=== PATIENT | female | born 1955 | race Caucasian/White ===

== ENCOUNTER → 2017-10-12 | Outpatient (CLI) | payer BC ==
[2017-10-12 09:46] LABS: Basophils % (A) 0 %; Eosinophils # (A) 0.1 k/uL (0-0.7); Eosinophils % (A) 1 %; HCT 45.5 % (34.0-46.0); HGB 14.6 gm/dL (11.4-16.0); Lymphocytes # (A) 2.5 k/uL (1.0-4.8); Lymphocytes % (A) 22 %; MCH 28.7 pg (25.0-35.0); MCHC 32.2 g/dL (31.0-37.0); MCV 89.3 fL (80.0-100.0); Monocytes # (A) 0.6 k/uL (0-1.0); Monocytes % (A) 6 %; Neutrophils # (A) 7.9 k/uL (1.3-7.7); Neutrophils % (A) 70 %; Platelet Count 236 k/uL (150-450); RDW 13.6 % (11.5-15.5); WBC 11.3 k/uL (3.8-10.6)
[2017-10-12 09:52] LABS: ALT 33 U/L (9-52); AST 21 U/L (14-36); Albumin 4.6 g/dL (3.5-5.0); Alkaline Phosphatase 70 U/L (38-126); Anion Gap 11 mmol/L; Blood Urea Nitrogen 17 mg/dL (7-17); Calcium 9.9 mg/dL (8.4-10.2); Carbon Dioxide 27 mmol/L (22-30); Chloride 106 mmol/L (98-107); Cholesterol 184 mg/dL (<200); Glucose 92 mg/dL (74-99); HDL Cholesterol 68 mg/dL (40-60); LDL Cholesterol,Calculated 94 mg/dL (0-99); Potassium 4.8 mmol/L (3.5-5.1); Sodium 144 mmol/L (137-145); Total Bilirubin 0.4 mg/dL (0.2-1.3); Total Protein 7.3 g/dL (6.3-8.2); Triglycerides 109 mg/dL (<150)
== END | disposition home or self-care (01) ==
LOC: LABWHC1 09:02
PROVIDERS: ATTEND Internal Medicine
DX: Z00.01 Encounter for general adult medical examination with abnormal findings (principal); E78.00 Pure hypercholesterolemia, unspecified; I10 Essential (primary) hypertension
CPT/HCPCS: 36415; 80053; 80061; 84439; 84443; 85025

== ENCOUNTER → 2018-01-21 | Outpatient (CLI) | payer BC ==
--- NOTE | 2018-01-22 10:41 | MM ---
Reason for exam: screening (asymptomatic). Last mammogram was performed 2 years and 7 months ago. History: Patient is postmenopausal and history of other cancer. Family history of breast cancer in maternal aunt and breast cancer in maternal cousin. Physical Findings: A clinical breast exam by your physician is recommended on an annual basis and results should be correlated with mammographic findings. MG Screening Mammo w CAD Bilateral CC and MLO view(s) were taken. Prior study comparison: June 18, 2015, bilateral MG screening mammo w CAD. November 28, 2012, bilateral digital screening mammo w/CAD. There are scattered fibroglandular densities. There is no discrete abnormality. ASSESSMENT: Negative, BI-RAD 1 RECOMMENDATION: Routine screening mammogram of both breasts in 1 year.
== END | disposition home or self-care (01) ==
LOC: RADMAMWWP 07:39
PROVIDERS: ATTEND Internal Medicine
DX: Z12.31 Encounter for screening mammogram for malignant neoplasm of breast (principal)
CPT/HCPCS: 77067

== ENCOUNTER 2019-06-06 07:38 | Inpatient (IN) | payer BC, MEDICARE ==
[2019-06-06] MEDS ORDERED: ACETAMINOPHEN TAB 500 MG TAB PO STA (08:06)
[2019-06-06] MEDS ORDERED: methylPREDNISolone SOD SUCCI 125 MG/2 ML VIAL IV STA (08:07)
[2019-06-06] MEDS ORDERED: IPRATROPIUM-ALBUTEROL 3 ML NEB INHALATION STA (08:07)
--- NOTE | 2019-06-06 08:10 | ED ---
General Adult HPI - General Chief complaint: Shortness of Breath Stated complaint: guillermina Time Seen by Provider: 06/06/19 07:45 Source: patient, family, RN notes reviewed Mode of arrival: ambulatory Limitations: no limitations - History of Present Illness Initial comments: Patient is a pleasant 63-year-old female presenting to the emergency Department with complaints of difficulty breathing. Onset of symptoms was 3 days ago. Patient did see her doctor and was given prescription for steroids and antibiotics without improvement of symptoms. Patient does have nonproductive cough. Patient has fatigue and myalgias. Patient does feel feverish this mor arti. Patient does have history of similar symptoms previously associated with COPD. Patient was once in the hospital for pneumonia. No leg pain or leg swelling. No chest pain. - Related Data Home Medications Medication Instructions Recorded Confirmed Aspirin EC [Ecotrin Low Dose] 81 mg PO DAILY 06/06/19 06/06/19 Azithromycin [Zithromax Z-pack] See Taper PO DAILY 06/06/19 06/06/19 Budesonide/Formoterol Fumarate 2 puff INHALATION RT-BID PRN 06/06/19 06/06/19 [Symbicort 160-4.5 Mcg Inhaler] Cetirizine HCl [Zyrtec] 10 mg PO DAILY 06/06/19 06/06/19 Ipratropium-Albuterol Nebulize 3 ml INHALATION RT-TID PRN 06/06/19 06/06/19 [Duoneb 0.5 mg-3 mg/3 ml Soln] Metoprolol Succinate [Toprol XL] 25 mg PO DAILY 06/06/19 06/06/19 Multivitamins, Thera [Multivitamin 1 tab PO DAILY 06/06/19 06/06/19 (formulary)] Rosuvastatin [Crestor] 10 mg PO DAILY 06/06/19 06/06/19 predniSONE [Deltasone] 20 mg PO DAILY 06/06/19 06/06/19 Allergies Allergy/AdvReac Type Severity Reaction Status Date / Time No Known Allergies Allergy Verified 06/06/19 09:33 Review of Systems ROS Statement: Those systems with pertinent positive or pertinent negative responses have been documented in the HPI. ROS Other: All systems not noted in ROS Statement are negative. Constitutional: Reports: fever, chills Eyes: Denies: eye pain ENT: Denies: ear pain, throat pain Respiratory: Reports: cough, dyspnea Cardiovascular: Denies: chest pain Endocrine: Reports: fatigue Gastrointestinal: Denies: abdominal pain Genitourinary: Denies: dysuria Musculoskeletal: Denies: back pain Skin: Denies: rash Neurological: Denies: weakness Past Medical History Past Medical History: Atrial Fibrillation, COPD, Hyperlipidemia, Hypertension History of Any Multi-Drug Resistant Organisms: None Reported Past Surgical History: Orthopedic Surgery Additional Past Surgical History / Comment(s): L leg Past Psychological History: No Psychological Hx Reported Smoking Status: Current every day smoker Past Alcohol Use History: None Reported Past Drug Use History: None Reported General Exam Limitations: no limitations General appearance: alert, in no apparent distress Head exam: Present: normocephalic Eye exam: Present: normal appearance ENT exam: Present: normal oropharynx Neck exam: Present: normal inspection Respiratory exam: Present: wheezes, decreased breath sounds Cardiovascular Exam: Present: tachycardia GI/Abdominal exam: Present: soft. Absent: tenderness Extremities exam: Present: normal inspection. Absent: pedal edema, calf tenderness Neurological exam: Present: alert Psychiatric exam: Present: normal affect, normal mood Skin exam: Present: normal color Course Vital Signs 06/06/19 06/06/19 06/06/19 07:41 07:59 08:15 Temperature 99 F 101.7 F H Pulse Rate 113 H 108 H Respiratory 18 24 Rate Blood Pressure 108/74 O2 Sat by Pulse 89 L 88 L 93 L Oximetry 06/06/19 06/06/19 06/06/19 08:22 08:32 09:04 Temperature 101.5 F H Pulse Rate 111 H 105 H 97 Respiratory 20 Rate Blood Pressure 100/74 O2 Sat by Pulse 94 L Oximetry EKG Findings - EKG Comments: EKG Findings:: Sinus tachycardia 111. WA 122. QRS 82. QT QT 302. QTC 410. Left axis. Low Voltage. No acute ST change. Medical Decision Making - Medical Decision Making Patient reevaluated and slightly improved. Pulse ox 93% on nasal cannula. Pat ient and family updated on results and plan. Dr. Ramirez has been paged for admission for Dr. Delgado. - Lab Data Result diagrams: 06/06/19 08:00 06/06/19 08:00 Lab Results 06/06/19 06/06/19 06/06/19 Range/Units 08:00 08:00 08:00 WBC 7.1 (3.8-10.6) k/uL RBC 4.77 (3.80-5.40) m/uL Hgb 14.4 (11.4-16.0) gm/dL Hct 42.4 (34.0-46.0) % MCV 89.0 (80.0-100.0) fL MCH 30.3 (25.0-35.0) pg MCHC 34.0 (31.0-37.0) g/dL RDW 12.6 (11.5-15.5) % Plt Count 199 (150-450) k/uL Neutrophils % 83 % Lymphocytes % 6 % Monocytes % 6 % Eosinophils % 0 % Basophils % 3 % Neutrophils # 5.9 (1.3-7.7) k/uL Lymphocytes # 0.4 L (1.0-4.8) k/uL Monocytes # 0.5 (0-1.0) k/uL Eosinophils # 0.0 (0-0.7) k/uL Basophils # 0.2 (0-0.2) k/uL PT (9.0-12.0) sec INR (<1.2) APTT (22.0-30.0) sec Sodium 138 (137-145) mmol/L Potassium 3.9 (3.5-5.1) mmol/L Chloride 105 (98-107) mmol/L Carbon Dioxide 22 (22-30) mmol/L Anion Gap 11 mmol/L BUN 14 (7-17) mg/dL Creatinine 0.68 (0.52-1.04) mg/dL Est GFR (CKD-EPI)AfAm >90 (>60 ml/min/1.73 sqM) Est GFR (CKD-EPI)NonAf >90 (>60 ml/min/1.73 sqM) Glucose 124 H (74-99) mg/dL Plasma Lactic Acid Jus 1.1 (0.7-2.0) mmol/L Calcium 8.7 (8.4-10.2) mg/dL Total Bilirubin 0.4 (0.2-1.3) mg/dL AST 50 H (14-36) U/L ALT 36 H (4-34) U/L Alkaline Phosphatase 76 (38-126) U/L Total Protein 7.5 (6.3-8.2) g/dL Albumin 4.4 (3.5-5.0) g/dL Influenza Type A RNA (Not Detectd) Influenza Type B (PCR) (Not Detectd) 06/06/19 06/06/19 Range/Units 08:00 08:00 WBC (3.8-10.6) k/uL RBC (3.80-5.40) m/uL Hgb (11.4-16.0) gm/dL Hct (34.0-46.0) % MCV (80.0-100.0) fL MCH (25.0-35.0) pg MCHC (31.0-37.0) g/dL RDW (11.5-15.5) % Plt Count (150-450) k/uL Neutrophils % % Lymphocytes % % Monocytes % % Eosinophils % % Basophils % % Neutrophils # (1.3-7.7) k/uL Lymphocytes # (1.0-4.8) k/uL Monocytes # (0-1.0) k/uL Eosinophils # (0-0.7) k/uL Basophils # (0-0.2) k/uL PT 9.5 (9.0-12.0) sec INR 0.9 (<1.2) APTT 25.3 (22.0-30.0) sec Sodium (137-145) mmol/L Potassium (3.5-5.1) mmol/L Chloride (98-107) mmol/L Carbon Dioxide (22-30) mmol/L Anion Gap mmol/L BUN (7-17) mg/dL Creatinine (0.52-1.04) mg/dL Est GFR (CKD-EPI)AfAm (>60 ml/min/1.73 sqM) Est GFR (CKD-EPI)NonAf (>60 ml/min/1.73 sqM) Glucose (74-99) mg/dL Plasma Lactic Acid Jus (0.7-2.0) mmol/L Calcium (8.4-10.2) mg/dL Total Bilirubin (0.2-1.3) mg/dL AST (14-36) U/L ALT (4-34) U/L Alkaline Phosphatase (38-126) U/L Total Protein (6.3-8.2) g/dL Albumin (3.5-5.0) g/dL Influenza Type A RNA Not Detected (Not Detectd) Influenza Type B (PCR) Detected H (Not Detectd) - Radiology Data Radiology results: image reviewed (x-ray shows no acute process) Disposition Clinical Impression: Acute exacerbation of chronic obstructive pulmonary disease, Influenza Disposition: ADMITTED IP TO THIS HOSP Is patient prescribed a controlled substance at d/c from ED?: No Referrals: Jazlyn Delgado MD [Primary Care Provider] - 1-2 days Decision Time: 09:43
[2019-06-06] MEDS: SODIUM CHLORIDE 0.9% 1,000 ML IV SCH ×3 (08:16→22:34)
[2019-06-06 08:33] LABS: ALT 36 U/L (4-34); AST 50 U/L (14-36); African American GFR (CKD) >90 (>60 ml/min/1.73 sqM); Albumin 4.4 g/dL (3.5-5.0); Alkaline Phosphatase 76 U/L (38-126); Anion Gap 11 mmol/L; Blood Urea Nitrogen 14 mg/dL (7-17); Calcium 8.7 mg/dL (8.4-10.2); Carbon Dioxide 22 mmol/L (22-30); Chloride 105 mmol/L (98-107); Glucose 124 mg/dL (74-99); INR 0.9 (<1.2); Non-African American GFR(CKD) >90 (>60 ml/min/1.73 sqM); Partial Thromboplastin Time 25.3 sec (22.0-30.0); Potassium 3.9 mmol/L (3.5-5.1); Prothrombin Time 9.5 sec (9.0-12.0); Sodium 138 mmol/L (137-145); Total Bilirubin 0.4 mg/dL (0.2-1.3); Total Protein 7.5 g/dL (6.3-8.2)
[2019-06-06 08:42] LABS: Basophils # (A) 0.2 k/uL (0-0.2); Basophils % (A) 3 %; Eosinophils % (A) 0 %; HCT 42.4 % (34.0-46.0); HGB 14.4 gm/dL (11.4-16.0); Lymphocytes # (A) 0.4 k/uL (1.0-4.8); Lymphocytes % (A) 6 %; MCH 30.3 pg (25.0-35.0); Mean Platelet Volume 7.8; Monocytes # (A) 0.5 k/uL (0-1.0); Monocytes % (A) 6 %; Neutrophils # (A) 5.9 k/uL (1.3-7.7); Neutrophils % (A) 83 %; Platelet Count 199 k/uL (150-450); RBC 4.77 m/uL (3.80-5.40); RDW 12.6 % (11.5-15.5); WBC 7.1 k/uL (3.8-10.6)
--- NOTE | 2019-06-06 09:05 | XR ---
EXAMINATION TYPE: XR chest 2V DATE OF EXAM: 06/06/2019 COMPARISON: Chest x-ray November 19, 2012. HISTORY: Fever. TECHNIQUE: Frontal and lateral views of the chest are obtained. FINDINGS: There is some chronic parenchymal change without suspicious new focal air space opacity, p leural effusion, or pneumothorax seen. The cardiac silhouette size is within normal limits. The os seous structures are intact. Overlying EKG leads seen on current study. IMPRESSION: Chronic emphysematous change without suspicious acute pulmonary process.
[2019-06-06] MEDS ORDERED: INFLUENZA VACCINE (6 MOS+) 60 MCG/0.5 ML SYRINGE IM ONE (10:32)
[2019-06-06] MEDS: IPRATROPIUM-ALBUTEROL 3 ML NEB INHALATION SCH ×3 (11:27→19:17)
[2019-06-06] MEDS ORDERED: IPRATROPIUM-ALBUTEROL 3 ML NEB INHALATION PRN (13:06)
[2019-06-06] MEDS: methylPREDNISolone SOD SUCCI 125 MG/2 ML VIAL IV SCH ×3 (13:38→23:28)
[2019-06-06] MEDS: OSELTAMIVIR 75 MG CAP PO SCH ×2 (13:38→20:39)
--- NOTE | 2019-06-06 14:21 | P.HPIM ---
History of Present Illness This is a pleasant 63 years old female with past medical history of COPD, atrial fibrillation , hyperlipidemia. Patient is not on home oxygen of steroids. She follows up with Dr. Delgado as an outpatient. Sunday she was stating feeling unwell, and by Sunday she had more difficulty breathing associated with a dry cough so decided to come to the hospital today with progressive illness. She has generalized muscle and joint pain, she had runny nose but no sore throat. Patient is febrile of 101.5, blood pressure 103/60. She is saturating 92% on 4 L. Labs showing unremarkable CBC, INR, BMP. Liver enzymes mildly elevated. If it was a type B is positive. EKG shows sinus tachycardia at 111, chest x-ray: No acute process. Chronic emphysematous changes. Patient started on Tamiflu and suddenly Medrol as well as bronchodilator. Review of Systems CONSTITUTIONAL: No fever, no malaise, no fatigue. HEENT: No recent visual problems or hearing problems. Denied any sore throat. CARDIOVASCULAR: No orthopnea, PND, no palpitations, no syncope. PULMONARY: , no hemoptysis. GASTROINTESTINAL: No diarrhea, no nausea, no vomiting, no abdominal pain. Normoactive bowel sounds. NEUROLOGICAL: No headaches, no weakness, no numbness. HEMATOLOGICAL: Denies any bleeding or petechiae. GENITOURINARY: Denies any burning micturition, frequency, or urgency. MUSCULOSKELETAL/RHEUMATOLOGICAL: Denies any joint pain, swelling, or any muscle pain. ENDOCRINE: Denies any polyuria or polydipsia. Past Medical History Past Medical History: Atrial Fibrillation, Cancer, COPD, Hyperlipidemia, Pneumonia Additional Past Medical History / Comment(s): L leg skin cancer with removal, bronchitis. History of Any Multi-Drug Resistant Organisms: None Reported Past Surgical History: Orthopedic Surgery, Tubal Ligation Additional Past Surgical History / Comment(s): L leg skin cancer removal, colonoscopy. Past Anesthesia/Blood Transfusion Reactions: No Reported Reaction Smoking Status: Current every day smoker - Past Family History Father Family Medical History: No Reported History Additional Family Medical History / Comment(s): Father lived to be 85 yrs. Mother Family Medical History: COPD Additional Family Medical History / Comment(s): Mother of COPD at the age of 84 yrs. She was a smoker. Medications and Allergies Home Medications Medication Instructions Recorded Confirmed Type Aspirin EC [Ecotrin Low Dose] 81 mg PO DAILY 06/06/19 06/06/19 History Azithromycin [Zithromax Z-pack] See Taper PO DAILY 06/06/19 06/06/19 History Budesonide/Formoterol Fumarate 2 puff INHALATION RT-BID PRN 06/06/19 06/06/19 History [Symbicort 160-4.5 Mcg Inhaler] Cetirizine HCl [Zyrtec] 10 mg PO DAILY 06/06/19 06/06/19 History Ipratropium-Albuterol Nebulize 3 ml INHALATION RT-TID PRN 06/06/19 06/06/19 History [Duoneb 0.5 mg-3 mg/3 ml Soln] Metoprolol Succinate [Toprol XL] 25 mg PO DAILY 06/06/19 06/06/19 History Multivitamins, Thera [Multivitamin 1 tab PO DAILY 06/06/19 06/06/19 History (formulary)] Rosuvastatin [Crestor] 10 mg PO DAILY 06/06/19 06/06/19 History predniSONE [Deltasone] 20 mg PO DAILY 06/06/19 06/06/19 History Allergies Allergy/AdvReac Type Severity Reaction Status Date / Time No Known Allergies Allergy Verified 06/06/19 09:33 Physical Exam Vitals: Vital Signs Temp Pulse Pulse Resp BP BP Pulse Ox 06/06/19 11:35 108 H 06/06/19 11:28 100 06/06/19 10:20 97.1 F L 84 18 103/60 92 L 06/06/19 10:19 99.8 F H 88 18 95/70 95 06/06/19 09:04 101.5 F H 97 20 100/74 94 L 06/06/19 08:32 105 H 06/06/19 08:22 111 H 06/06/19 08:15 93 L 06/06/19 07:59 101.7 F H 108 H 24 88 L 06/06/19 07:41 99 F 113 H 18 108/74 89 L Intake and Output 06/05/19 06/06/19 06/06/19 22:59 06:59 14:59 Other: Weight 84.822 kg GENERAL: The patient is alert and oriented x3, not in any acute distress. Well developed, well nourished. HEENT: Pupils are round and equally reacting to light. EOMI. No scleral icterus. No conjunctival pallor. Normocephalic, atraumatic. No pharyngeal erythema. No thyromegaly. CARDIOVASCULAR: S1 and S2 present. No murmurs, rubs, or gallops. -PULMONARY: Chest is clear to auscultation, bilateral expiratory wheezing A bilateral expiratory wheezing, nondistended, normoactive bowel sounds. No palpable organomegaly. MUSCULOSKELETAL: No joint swelling or deformity. EXTREMITIES: No cyanosis, clubbing, or pedal edema. NEUROLOGICAL: Gross neurological examination did not reveal any focal deficits. SKIN: No rashes. No petechiae Results CBC & Chem 7: 06/06/19 08:00 06/06/19 08:00 Labs: Abnormal Lab Results - Last 24 Hours (Table) 06/06/19 06/06/19 06/06/19 Range/Units 08:00 08:00 08:00 Lymphocytes # 0.4 L (1.0-4.8) k/uL Glucose 124 H (74-99) mg/dL AST 50 H (14-36) U/L ALT 36 H (4-34) U/L Influenza Type B (PCR) Detected H (Not Detectd) Thrombosis Risk Factor Assmnt - Choose All That Apply Any of the Below Risk Factors Present?: Yes Each Factor Represents 1 point: Abnormal pulmonary function (COPD), Obesity (BMI >25) Other Risk Factors: Yes Each Risk Factor Represents 2 Points: Age 61-74 years Other congenital or acquired thrombophilia - If yes, enter type in comment: No Thrombosis Risk Factor Assessment Total Risk Factor Score: 4 Thrombosis Risk Factor Assessment Level: Moderate Risk Assessment and Plan Assessment: Acute COPD exacerbation acute hypoxic respiratory failure Acute influenza infection Hyperlipidemia Atrial fibrillation Plan: This is a pleasant 63 years old female who presents with influenza and COPD. Continue with steroids, bronchodilators, oxygen. Continue with Tamiflu. Labs and medication were reviewed.. Continue same treatment. Continue with symptomatic treatment. Resume home medication. Monitor lytes and vitals. DVT and GI prophylaxis. Further recommendations of the clinical course of the patient DVT prophylaxis: Subcutaneous heparin GI Prophylaxis: Pepcid Prognosis is guarded
[2019-06-06 15:30] LABS: Appearance,Urine Clear (Clear); Bacteria,Urine Rare /hpf; Bilirubin,Urine Negative (Negative); Blood,Urine Small (Negative); Color,Urine Light Yellow; Glucose,Urine (UA) Negative (Negative); Ketones,Urine Negative (Negative); Leukocyte Esterase,Urine Negative (Negative); Mucus,Urine Rare /hpf; Nitrite,Urine Negative (Negative); PH, Urine 5.5 (5.0-8.0); Protein,Urine Negative (Negative); RBC,Urine 3 /hpf (0-5); Specific Gravity,Urine 1.008 (1.001-1.035); Squamous Epithelial Cell,Urine <1 /hpf (0-4); Urobilinogen,Urine <2.0 mg/dL (<2.0); WBC,Urine <1 /hpf (0-5)
[2019-06-06] MEDS: FAMOTIDINE 20 MG/2 ML VIAL IV SCH ×2 (16:43→20:39)
[2019-06-06] MEDS: HEPARIN SODIUM,PORCINE 5,000 UNIT/ML 1 ML VIAL SQ SCH ×2 (16:43→20:39)
[2019-06-06] MEDS: SYMBICORT 160-4.5 MCG INHALER INHALATION SCH (19:18)
[2019-06-07] MEDS ORDERED: IBUPROFEN 400 MG TAB PO PRN
[2019-06-07] MEDS ORDERED: ACETAMINOPHEN TAB 325 MG TAB PO PRN
[2019-06-07] MEDS: IPRATROPIUM-ALBUTEROL 3 ML NEB INHALATION PRN ×2 (00:08→23:56)
[2019-06-07] MEDS: methylPREDNISolone SOD SUCCI 125 MG/2 ML VIAL IV SCH ×4 (05:36→23:34)
[2019-06-07] MEDS: SYMBICORT 160-4.5 MCG INHALER INHALATION SCH ×2 (07:13→20:11)
[2019-06-07] MEDS: IPRATROPIUM-ALBUTEROL 3 ML NEB INHALATION SCH ×4 (07:13→20:11)
--- NOTE | 2019-06-07 08:43 | P.PN ---
Subjective This is a pleasant 63 years old female with past medical history of COPD, atrial fibrillation , hyperlipidemia. Patient is not on home oxygen of steroids. She follows up with Dr. Delgado as an outpatient. Sunday she was stating feeling unwell, and by Sunday she had more difficulty breathing associated with a dry cough so decided to come to the hospital today with progressive illness. She has generalized muscle and joint pain, she had runny nose but no sore throat. Patient is febrile of 101.5, blood pressure 103/60. She is saturating 92% on 4 L. Labs showing unremarkable CBC, INR, BMP. Liver enzymes mildly elevated. If it was a type B is positive. EKG shows sinus tachycardia at 111, chest x-ray: No acute process. Chronic emphysematous changes. Patient started on Tamiflu and suddenly Medrol as well as bronchodilator. 05/28/2019 although patient reports little improvement over she still tachypneic when examined her this morning with coughing. No more fever since yesterday. Labs are reviewed. She remains on Sunday Medrol 60 mg, Tamiflu and normal saline at 75 mL/h. Also she is on ibuprofen and Symbicort Review of systems This is a pleasant 63 years old female with past medical history of COPD, atrial fibrillation , hyperlipidemia. Patient is not on home oxygen of steroids. She follows up with Dr. Delgado as an outpatient. Sunday she was stating feeling unwell, and by Sunday she had more difficulty breathing associated with a dry cough so decided to come to the hospital today with progressive illness. She has generalized muscle and joint pain, she had runny nose but no sore throat. Patient is febrile of 101.5, blood pressure 103/60. She is saturating 92% on 4 L. Labs showing unremarkable CBC, INR, BMP. Liver enzymes mildly elevated. If it was a type B is positive. EKG shows sinus tachycardia at 111, chest x-ray: No acute process. Chronic emphysematous changes. Patient started on Tamiflu an d suddenly Medrol as well as bronchodilator. Active Medications Generic Name Dose Route Start Last Admin Trade Name Freq PRN Reason Stop Dose Admin Acetaminophen 650 mg 06/07/19 00:00 Tylenol Tab PO Q6HR PRN Fever and/ or Pain Albuterol/Ipratropium 3 ml 06/06/19 12:00 06/07/19 07:13 Duoneb 0.5 Mg-3 Mg/3 Ml Soln INHALATION 3 ml RT-QID KODAK Administration Albuterol/Ipratropium 3 ml 06/06/19 09:44 06/07/19 00:08 Duoneb 0.5 Mg-3 Mg/3 Ml Soln INHALATION 3 ml RT-Q4H PRN Administration Shortness Of Breath Or Wheezing Aspirin 81 mg 06/07/19 09:00 Aspirin PO DAILY [facility] Atorvastatin Calcium 20 mg 06/07/19 09:00 Lipitor PO DAILY [facility] Budesonide/Formoterol Fumarate 2 puff 06/06/19 20:00 06/07/19 07:13 Symbicort 160-4.5 Mcg Inhaler INHALATION 2 puff RT-BID KODAK Administration Famotidine 20 mg 06/06/19 14:30 06/06/19 20:39 Pepcid IV 20 mg Q12HR KODAK Administration Heparin Sodium (Porcine) 5,000 unit 06/06/19 14:30 06/06/19 20:39 Heparin SQ 5,000 unit Q12HR KODAK Administration Sodium Chloride 1,000 mls @ 75 mls/hr 06/06/19 08:15 06/06/19 22:34 Saline 0.9% IV Not Given .[id number] [facility] Ibuprofen 600 mg 06/07/19 08:42 Motrin PO BID PRN Fever and/or Moderate Pain Loratadine 10 mg 06/07/19 09:00 Claritin PO DAILY [facility] Methylprednisolone Sodium Succinate 60 mg 06/06/19 12:00 06/07/19 05:36 Solu-Medrol IV 60 mg Q6HR [facility] Administration Metoprolol Succinate 25 mg 06/07/19 09:00 Toprol Xl PO DAILY [facility] Multivitamins 1 each 06/07/19 09:00 Theragran PO DAILY [facility] Oseltamivir Phosphate 75 mg 06/06/19 09:45 06/06/19 20:39 Tamiflu PO 06/10/19 21:01 75 mg Q12HR KODAK Administration Objective - Vital Signs Vital signs: Vital Signs Temp 96.5 F L 06/07/19 04:45 Pulse 72 06/07/19 07:24 Resp 22 06/07/19 04:45 BP 114/55 06/07/19 04:45 Pulse Ox 91 L 06/07/19 04:45 Intake & Output 06/06/19 06/07/19 06/07/19 18:59 06:59 18:59 Intake Total 300 Balance 300 Weight 84.822 kg Intake: Oral 300 Other: # Voids 2 2 - Exam GENERAL: The patient is alert and oriented x3, not in any acute distress. Well developed, well nourished. HEENT: Pupils are round and equally reacting to light. EOMI. No scleral icterus. No conjunctival pallor. Normocephalic, atraumatic. No pharyngeal erythema. No thyromegaly. CARDIOVASCULAR: S1 and S2 present. No murmurs, rubs, or gallops. -PULMONARY: Chest is clear to auscultation, bilateral expiratory wheezing A bilateral expiratory wheezing, nondistended, normoactive bowel sounds. No palpable organomegaly. MUSCULOSKELETAL: No joint swelling or deformity. EXTREMITIES: No cyanosis, clubbing, or pedal edema. NEUROLOGICAL: Gross neurological examination did not reveal any focal deficits. SKIN: No rashes. No petechiae - Labs CBC & Chem 7: 06/06/19 08:00 06/06/19 08:00 Labs: Abnormal Lab Results - Last 24 Hours (Table) 06/06/19 06/06/19 Range/Units 08:00 Unknown Lymphocytes # 0.4 L (1.0-4.8) k/uL Urine Blood Small H (Negative) Urine Bacteria Rare H (None) /hpf Urine Mucus Rare H (None) /hpf Assessment and Plan Assessment: Acute COPD exacerbation acute hypoxic respiratory failure Acute influenza infection Hyperlipidemia Atrial fibrillation Plan: This is a pleasant 63 years old female who presents with influenza and COPD. Continue with steroids, bronchodilators, oxygen. Continue with Tamiflu. Labs and medication were reviewed.. Continue same treatment. Continue with symptomatic treatment. Resume home medication. Monitor lytes and vitals. DVT and GI prophylaxis. Further recommendations of the clinical course of the patient DVT prophylaxis: Subcutaneous heparin GI Prophylaxis: Pepcid Prognosis is guarded
[2019-06-07 08:47] LABS: African American GFR (CKD) >90 (>60 ml/min/1.73 sqM); Anion Gap 13 mmol/L; Blood Urea Nitrogen 13 mg/dL (7-17); Calcium 8.7 mg/dL (8.4-10.2); Carbon Dioxide 22 mmol/L (22-30); Chloride 106 mmol/L (98-107); Glucose 236 mg/dL (74-99); Non-African American GFR(CKD) >90 (>60 ml/min/1.73 sqM); Potassium 3.9 mmol/L (3.5-5.1); Sodium 141 mmol/L (137-145)
[2019-06-07] MEDS: ASPIRIN 81 MG PO SCH (09:11)
[2019-06-07] MEDS: OSELTAMIVIR 75 MG CAP PO SCH ×2 (09:11→21:54)
[2019-06-07] MEDS: LORATADINE 10 MG TAB PO SCH (09:11)
[2019-06-07] MEDS: IBUPROFEN 600 MG TAB PO PRN ×2 (09:11→21:54)
[2019-06-07] MEDS: METOPROLOL SUCCINATE (ER) 25 MG TAB.ER.24H PO SCH (09:11)
[2019-06-07] MEDS: MULTIVITAMINS, THERA 1 EACH TAB PO SCH (09:12)
[2019-06-07] MEDS: SODIUM CHLORIDE 0.9% 1,000 ML IV SCH ×3 (09:12→23:34)
[2019-06-07] MEDS: HEPARIN SODIUM,PORCINE 5,000 UNIT/ML 1 ML VIAL SQ SCH ×2 (09:12→21:53)
[2019-06-07] MEDS: ATORVASTATIN 20 MG TAB PO SCH (09:12)
[2019-06-07] MEDS: FAMOTIDINE 20 MG/2 ML VIAL IV SCH ×2 (09:12→21:53)
[2019-06-07 11:44] LABS: Glucose,Whole Blood 136 mg/dL (75-99)
[2019-06-07] MEDS: INSULIN ASPART (NovoLOG) 100 UNIT/ML VIAL SQ SCH ×3 (13:22→21:53)
--- NOTE | 2019-06-07 14:09 | CONS ---
CONSULTATION PULMONARY/CRITICAL CARE CONSULTATION: DATE OF SERVICE: 06/07/2019 REASON FOR CONSULTATION: Shortness of breath. A 63-year-old female who sees Dr. Delgado as her primary. She apparently presented to the emergency room with complaints of shortness of breath. The patient complained that she had not been feeling well for about 3 days prior to admission. She apparently did see her primary care physician who prescribed some steroids and antibiotics. Unfortunately, she did not improve. For that reason, she came in to be evaluated. She had chest congestion, shortness of breath, chest tightness, wheezing, cough. She was not really producing much or any phlegm. Maybe just a bit. The patient had fatigue and myalgias. She felt like she had a fever, but she did not actually measure her temperatures at home. She also just was feeling weak. Anyway, she did come into the emergency room to be evaluated and she was admitted with a COPD exacerbation as well as influenza. She is feeling a bit better today. Certainly not back to baseline. She did not get a flu shot in the fall. She has not seen a lung doctor. She does have a substantial tobacco history. MEDICATIONS: Reviewed. She is on aspirin, Zithromax, which was given to her by her primary, Symbicort, Zyrtec, DuoNeb, metoprolol, multivitamins, Crestor, and prednisone. ALLERGIES: Denied. MEDICAL HISTORY: Includes COPD, although she has never been evaluated by a lung doctor, hyperlipidemia, hypertension, and atrial fibrillation. SURGICAL HISTORY: Includes among other things left leg surgery. It was an orthopedic procedure. SOCIAL HISTORY: Positive for chronic and ongoing tobacco use for many, many years. She does not use alcohol or illicit drugs. FAMILY HISTORY: Noncontributory. Both mother and father were healthy. REVIEW OF SYSTEMS: CONSTITUTIONAL: Weakness, fatigue. NEUROLOGIC: Negative. HEENT: Negative. CARDIOVASCULAR: Negative. PULMONARY: Shortness of breath, chest tightness, wheezing, cough, mostly nonproductive chest congestion. GI: Negative. : Negative. RHEUMATOLOGIC: Muscle aches, joint aches. ENDOCRINOLOGIC: Negative. DERMATOLOGIC: Negative. ENDOCRINOLOGIC: Negative. Current vital signs are reviewed. She has a temperature which is 96.5, heart rate 70, respiratory rate 22, blood pressure 114/55 mean 74 and 2 L saturation 91%. Appears in no acute distress. No respiratory distress. No audible wheezing. No use of accessory muscles. HEENT: Examination is grossly unremarkable. Mucous membranes are moist. Nasal O2 noted. NECK: Supple, full range of motion. No adenopathy. Neck veins are flat. CARDIOVASCULAR: Examination reveals regular rhythm and rate. S1, S2 normal. No S3, S4, or murmur. LUNGS: Reveal coarse expiratory rhonchi and wheezes. Breath sounds are diminished. There is prolongation. No crackles. ABDOMEN: Soft, bowel sounds are heard. No masses or tenderness. EXTREMITIES: Intact. No cyanosis, clubbing, or edema. SKIN: Without rash. NEUROLOGIC: Examination is brief but nonfocal. Microbiology studies are thus far negative. Chest x-ray shows changes of COPD but no acute abnormalities. LABORATORY DATA: Reviewed. White count 7.1, hemoglobin 14.4, hematocrit 42.4, platelet count normal. PT, INR, PTT normal. Electrolytes all normal including sodium, potassium, chloride and CO2. Anion gap is normal. BUN and creatinine were 13 and 0.64. AST and ALT were 50 and 36 respectively. Urine was negative. Influenza studies were positive for influenza B by polymerase chain reaction. Current medications are reviewed. She is currently on Tylenol, aspirin, Lipitor, Symbicort, Pepcid, subcu heparin, ibuprofen, insulin, DuoNeb, loratadine, Solu-Medrol, metoprolol, multivitamins, Tamiflu, and a basic IV. ASSESSMENT: 1. Chronic obstructive pulmonary disease exacerbation, triggered by influenza B infection in a patient who was not vaccinated this fall. 2. History of ongoing tobacco use with nicotine addiction. 3. History of atrial fibrillation. 4. Hyperlipidemia. 5. Hypertension. PLAN: The patient is feeling better. Hopeful discharge in the next 24-48 hours. Medications are appropriate. Will continue to follow. I do encourage her to get a flu shot. No additional recommendations are made at this time. Prognosis is guarded. She is also counseled about the importance of smoking cessation and also mentioned to her that she should mention to her primary that she should be seen by one of the pulmonary doctors. MMODL / IJN: [id number] /
[2019-06-07 16:35] LABS: Glucose,Whole Blood 193 mg/dL (75-99)
[2019-06-07 20:34] LABS: Glucose,Whole Blood 174 mg/dL (75-99)
[2019-06-08] MEDS: methylPREDNISolone SOD SUCCI 125 MG/2 ML VIAL IV SCH ×4 (05:56→23:23)
[2019-06-08 07:04] LABS: Glucose,Whole Blood 142 mg/dL (75-99)
--- NOTE | 2019-06-08 08:18 | P.PN ---
Subjective This is a pleasant 63 years old female with past medical history of COPD, atrial fibrillation , hyperlipidemia. Patient is not on home oxygen of steroids. She follows up with Dr. Delgado as an outpatient. Sunday she was stating feeling unwell, and by Sunday she had more difficulty breathing associated with a dry cough so decided to come to the hospital today with progressive illness. She has generalized muscle and joint pain, she had runny nose but no sore throat. Patient is febrile of 101.5, blood pressure 103/60. She is saturating 92% on 4 L. Labs showing unremarkable CBC, INR, BMP. Liver enzymes mildly elevated. If it was a type B is positive. EKG shows sinus tachycardia at 111, chest x-ray: No acute process. Chronic emphysematous changes. Patient started on Tamiflu and suddenly Medrol as well as bronchodilator. 06/07/2019 although patient reports little improvement over she still tachypneic when examined her this morning with coughing. No more fever since yesterday. Labs are reviewed. She remains on Sunday Medrol 60 mg, Tamiflu and normal saline at 75 mL/h. Also she is on ibuprofen and Symbicort 06/08/2019 Patient still dyspneic especially on exertion, she does have some rib cage pain from coughing. She does not think she is ready to be discharged today. Patient is afebrile and blood pressure stable. On exam she still have limited air entry. Glucose is controlled. Continue with steroids and Tamiflu. Objective - Vital Signs Vital signs: Vital Signs Temp 96.2 F L 06/08/19 04:50 Pulse 89 06/08/19 04:50 Resp 20 06/08/19 04:50 BP 119/68 06/08/19 04:50 Pulse Ox 92 L 06/08/19 04:50 Intake & Output 06/07/19 06/08/19 06/08/19 18:59 06:59 18:59 Intake Total 940 500 Balance 940 500 Intake: Oral 940 500 Other: # Voids 3 1 - Exam GENERAL: The patient is alert and oriented x3, not in any acute distress. Well developed, well nourished. HEENT: Pupils are round and equally reacting to light. EOMI. No scleral icterus. No conjunctival pallor. Normocephalic, atraumatic. No pharyngeal erythema. No thyromegaly. CARDIOVASCULAR: S1 and S2 present. No murmurs, rubs, or gallops. -PULMONARY: Chest is clear to auscultation, bilateral expiratory wheezing A bilateral expiratory wheezing, nondistended, normoactive bowel sounds. No palpable organomegaly. MUSCULOSKELETAL: No joint swelling or deformity. EXTREMITIES: No cyanosis, clubbing, or pedal edema. NEUROLOGICAL: Gross neurological examination did not reveal any focal deficits. SKIN: No rashes. No petechiae - Labs CBC & Chem 7: 06/06/19 08:00 06/07/19 08:15 Labs: Abnormal Lab Results - Last 24 Hours (Table) 06/07/19 06/07/19 06/07/19 Range/Units 08:15 11:41 16:29 Glucose 236 H (74-99) mg/dL POC Glucose (mg/dL) 136 H 193 H (75-99) mg/dL 06/07/19 06/08/19 Range/Units 20:08 07:01 Glucose (74-99) mg/dL POC Glucose (mg/dL) 174 H 142 H (75-99) mg/dL Microbiology - Last 24 Hours (Table) 06/06/19 08:00 Blood Culture - Preliminary Blood No Growth after 24 hours Assessment and Plan Assessment: Acute COPD exacerbation acute hypoxic respiratory failure Acute influenza infection Hyperlipidemia Atrial fibrillation Plan: This is a pleasant 63 years old female who presents with influenza and COPD. Continue with steroids, bronchodilators, oxygen. Continue with Tamiflu. Labs and medication were reviewed.. Continue same treatment. Continue with symptom atic treatment. Resume home medication. Monitor lytes and vitals. DVT and GI prophylaxis. Further recommendations of the clinical course of the patient DVT prophylaxis: Subcutaneous heparin GI Prophylaxis: Pepcid Prognosis is guarded
[2019-06-08] MEDS: IPRATROPIUM-ALBUTEROL 3 ML NEB INHALATION SCH ×4 (08:24→19:37)
[2019-06-08] MEDS: SYMBICORT 160-4.5 MCG INHALER INHALATION SCH ×2 (08:24→19:37)
[2019-06-08] MEDS: FAMOTIDINE 20 MG/2 ML VIAL IV SCH ×2 (08:59→20:56)
[2019-06-08] MEDS: ASPIRIN 81 MG PO SCH (08:59)
[2019-06-08] MEDS: HEPARIN SODIUM,PORCINE 5,000 UNIT/ML 1 ML VIAL SQ SCH ×2 (08:59→20:56)
[2019-06-08] MEDS: OSELTAMIVIR 75 MG CAP PO SCH ×2 (08:59→20:56)
[2019-06-08] MEDS: METOPROLOL SUCCINATE (ER) 25 MG TAB.ER.24H PO SCH (08:59)
[2019-06-08] MEDS: MULTIVITAMINS, THERA 1 EACH TAB PO SCH (08:59)
[2019-06-08] MEDS: LORATADINE 10 MG TAB PO SCH (08:59)
[2019-06-08] MEDS: ATORVASTATIN 20 MG TAB PO SCH (09:00)
[2019-06-08] MEDS: INSULIN ASPART (NovoLOG) 100 UNIT/ML VIAL SQ SCH ×4 (09:00→20:55)
[2019-06-08] MEDS: IBUPROFEN 600 MG TAB PO PRN ×2 (09:08→17:54)
[2019-06-08 11:25] LABS: Glucose,Whole Blood 164 mg/dL (75-99)
--- NOTE | 2019-06-08 12:47 | P.PN ---
Subjective Progress Note Date: 06/08/19 Principal diagnosis: Acute exacerbation of chronic obstructive pulmonary disease, complicated by influenza B The patient is seen today in 06/08/2019 in follow-up on the regular medical floor. She was admitted for an acute exacerbation of chronic obstructive pulmonary disease, complicated by influenza B. She does have chronic and ongoing tobacco dependence. She was has a history of atrial fibrillation, hyperlipidemia, hypertension. She is seen today in follow-up. She is sitting up at the bedside. Awake and alert in no acute distress. She is improved today compared to yesterday but not quite back to her baseline. Still with some dyspnea on exertion. Still somewhat bronchospastic and wheezy. She has been maintained on DuoNeb inhalations, Symbicort, IV Solu-Medrol, Tamiflu. Objective - Vital Signs Vital signs: Vital Signs Temp 96.2 F L 06/08/19 04:50 Pulse 84 06/08/19 11:50 Resp 20 06/08/19 04:50 BP 119/68 06/08/19 04:50 Pulse Ox 93 L 06/08/19 08:24 Intake & Output 06/07/19 06/08/19 06/08/19 18:59 06:59 18:59 Intake Total 940 500 Balance 940 500 Intake: Oral 940 500 Other: # Voids 3 1 - Exam GENERAL EXAM: Alert, active, pleasant 63-year-old female patient, on 2 L nasal cannula, comfortable in no apparent distress. HEAD: Normocephalic. EYES: Normal reaction of pupils, equal size. NOSE: Clear with pink turbinates. THROAT: No erythema or exudates. NECK: No masses, no JVD. CHEST: No chest wall deformity. LUNGS: Equal air entry with bilateral end expiratory wheeze, diminished. CVS: S1 and S2 normal with no audible murmur, regular rhythm. ABDOMEN: No hepatosplenomegaly, normal bowel sounds, no guarding or rigidity. SPINE: No scoliosis or deformity SKIN: No rashes CENTRAL NERVOUS SYSTEM: No focal deficits, tone is normal in all 4 extremities. EXTREMITIES: There is no peripheral edema. No clubbing, no cyanosis. Peripheral pulses are intact. - Labs CBC & Chem 7: 06/06/19 08:00 06/07/19 08:15 Labs: Abnormal Lab Results - Last 24 Hours (Table) 0106/07/19 06/08/19 Range/Units 16:29 20:08 07:01 POC Glucose (mg/dL) 193 H 174 H 142 H (75-99) mg/dL 06/08/19 Range/Units 11:22 POC Glucose (mg/dL) 164 H (75-99) mg/dL Microbiology - Last 24 Hours (Table) 06/06/19 08:00 Blood Culture - Preliminary Blood No Growth after 48 hours Assessment and Plan Assessment: 1 Acute exacerbation chronic obstructive pulmonary disease, complicated by influenza B 2 Chronic and ongoing tobacco dependence 3 History of atrial fibrillation 4 Hyperlipidemia 5 Hypertension Plan: The patient was seen and evaluated by Dr. Cook. She is improved but not quite back to her baseline. We'll continue the current treatment plan. Probable discharge in the a.m. She is again educated regarding the importance of complete smoking cessation. We'll continue to follow I, the cosigning physician, performed a history & physical examination of the patient. Lungs sounds with bilateral end expiratory wheeze, diminished. Maintaining good O2 saturations in the 90s on 2 L/m per nasal cannula. I discussed the assessment and plan of care with my nurse practitioner, Mona Tomas. I attest to the above note as dictated by her.
[2019-06-08 16:44] LABS: Glucose,Whole Blood 149 mg/dL (75-99)
[2019-06-08] MEDS: SODIUM CHLORIDE 0.9% 1,000 ML IV SCH (17:49)
[2019-06-08 18:48] LABS: African American GFR (CKD) >90 (>60 ml/min/1.73 sqM); Anion Gap 8 mmol/L; Blood Urea Nitrogen 16 mg/dL (7-17); Calcium 8.7 mg/dL (8.4-10.2); Carbon Dioxide 26 mmol/L (22-30); Chloride 105 mmol/L (98-107); Glucose 155 mg/dL (74-99); Non-African American GFR(CKD) >90 (>60 ml/min/1.73 sqM); Potassium 4.6 mmol/L (3.5-5.1); Sodium 139 mmol/L (137-145)
[2019-06-08 20:39] LABS: Glucose,Whole Blood 183 mg/dL (75-99)
[2019-06-09] MEDS: methylPREDNISolone SOD SUCCI 125 MG/2 ML VIAL IV SCH ×2 (05:54→12:23)
[2019-06-09 07:13] LABS: Glucose,Whole Blood 144 mg/dL (75-99)
[2019-06-09] MEDS: FAMOTIDINE 20 MG/2 ML VIAL IV SCH (07:40)
[2019-06-09] MEDS: OSELTAMIVIR 75 MG CAP PO SCH (07:40)
[2019-06-09] MEDS: METOPROLOL SUCCINATE (ER) 25 MG TAB.ER.24H PO SCH (07:41)
[2019-06-09] MEDS: MULTIVITAMINS, THERA 1 EACH TAB PO SCH (07:41)
[2019-06-09] MEDS: ATORVASTATIN 20 MG TAB PO SCH (07:41)
[2019-06-09] MEDS: HEPARIN SODIUM,PORCINE 5,000 UNIT/ML 1 ML VIAL SQ SCH (07:41)
[2019-06-09] MEDS: INSULIN ASPART (NovoLOG) 100 UNIT/ML VIAL SQ SCH ×2 (07:41→12:23)
[2019-06-09] MEDS: ASPIRIN 81 MG PO SCH (07:41)
[2019-06-09] MEDS: LORATADINE 10 MG TAB PO SCH (07:41)
[2019-06-09] MEDS: SODIUM CHLORIDE 0.9% 1,000 ML IV SCH (07:42)
[2019-06-09] MEDS: SYMBICORT 160-4.5 MCG INHALER INHALATION SCH (09:23)
[2019-06-09] MEDS: IPRATROPIUM-ALBUTEROL 3 ML NEB INHALATION SCH ×3 (09:23→16:23)
[2019-06-09 11:24] LABS: Glucose,Whole Blood 157 mg/dL (75-99)
[2019-06-09 14:29] VITALS: BP 120/72; RESP 18; TEMP 98.7
--- NOTE | 2019-06-09 15:12 | P.PN ---
Subjective Progress Note Date: 06/09/19 On today's evaluation of 06/09/2019 the patient is doing well. No specific complaints. She is gradually improving. She is ambulating. No fever. No chills. No chest pain. No nausea vomiting or diarrhea. No other complaints otherwise for now. She has Symbicort at home and she also has a nebulizer. She is desaturating with activity and it's likely that the patient may need home O2 at a time of discharge. No altered mentation. No chest pain. Objective - Vital Signs Vital signs: Vital Signs Temp 98.7 F 06/09/19 12:45 Pulse 92 06/09/19 13:35 Resp 18 06/09/19 12:45 BP 120/72 06/09/19 12:45 Pulse Ox 92 L 06/09/19 12:45 Intake & Output 06/08/19 06/09/19 06/09/19 18:59 06:59 18:59 Intake Total 540 540 Balance 540 540 Intake: Oral 540 540 Other: Voiding Method Toilet Toilet # Voids 3 2 3 - Exam GENERAL EXAM: Alert, active, pleasant 63-year-old female patient, on 2 L nasal cannula, comfortable in no apparent distress. HEAD: Normocephalic. EYES: Normal reaction of pupils, equal size. NOSE: Clear with pink turbinates. THROAT: No erythema or exudates. NECK: No masses, no JVD. CHEST: No chest wall deformity. LUNGS: Equal air entry with bilateral end expiratory wheeze, diminished. CVS: S1 and S2 normal with no audible murmur, regular rhythm. ABDOMEN: No hepatosplenomegaly, normal bowel sounds, no guarding or rigidity. SPINE: No scoliosis or deformity SKIN: No rashes CENTRAL NERVOUS SYSTEM: No focal deficits, tone is normal in all 4 extremities. EXTREMITIES: There is no peripheral edema. No clubbing, no cyanosis. Periphe ral pulses are intact. - Labs CBC & Chem 7: 06/06/19 08:00 06/08/19 18:12 Labs: Abnormal Lab Results - Last 24 Hours (Table) 06/08/19 06/08/19 06/08/19 Range/Units 16:42 18:12 20:35 Glucose 155 H (74-99) mg/dL POC Glucose (mg/dL) 149 H 183 H (75-99) mg/dL 06/09/19 06/09/19 Range/Units 07:09 11:23 Glucose (74-99) mg/dL POC Glucose (mg/dL) 144 H 157 H (75-99) mg/dL Microbiology - Last 24 Hours (Table) 06/06/19 08:00 Blood Culture - Preliminary Blood No Growth after 72 hours Assessment and Plan Plan: 1 Acute exacerbation chronic obstructive pulmonary disease, complicated by influenza B 2 Chronic and ongoing tobacco dependence 3 History of atrial fibrillation 4 Hyperlipidemia 5 Hypertension Clinically the patient is improving. The patient is recovering from an acute COPD exacerbation. She'll be completing a course of Tamiflu along with a prednisone burst taper. Assess home oxygen at time of discharge and it's likely that the patient may need brief oxygen therapy at home as the patient is demonstrating some exertional desaturation. Otherwise she is doing well and I think she should be able to go home today to be followed up with pulmonary and her primary care physician on outpatient basis.
[2019-06-09 16:11] VITALS: PULSE 81
--- NOTE | 2019-06-12 10:17 | P.DS ---
Providers Date of admission: 06/06/19 09:44 Attending physician: Jonathan Ramirez Consults: 06/06/19 14:11 Consult Physician Urgent Consulting Provider: David Cook Consult Reason/Comments: COPD, influenza Do you want consulting provider notified?: Yes Primary care physician: Jazlyn Delgado Hospital Course: Diagnoses: Acute COPD exacerbation acute hypoxic respiratory failure Acute influenza infection Hyperlipidemia Atrial fibrillation Hospital course: This is a pleasant 63 years old female with past medical history of COPD, atrial fibrillation , hyperlipidemia. Patient is not on home oxygen of steroids. She follows up with Dr. Delgado as an outpatient. Sunday she was stating feeling unwell, and by Sunday she had more difficulty breathing associated with a dry cough so decided to come to the hospital today with progressive illness. She has generalized muscle and joint pain, she had runny nose but no sore throat. Patient was febrile of 101.5, On admission patient was found to be influenza positive and started on Tamiflu, she was found to be an acute COPD exacerbation. Chest x-ray: No acute consolidation but chronic emphysematous changes. Patient has been evaluated by pulmonary service. Patient was treated with bronchodilators as well as steroids. Patient gradually showed interval improvement, and her symptoms were resolving with less dyspnea, patient came back close to her baseline. On the day of discharge patient denies chest pain, no abdominal pain or nausea vomiting. No fever Patient feels she can be discharged home Patient was cleared for discharge by pulmonary service Problems and management plan were discussed with the patient and he verbalized understanding and acceptance Patient was found stable and can be discharged home however he needs follow-up as an outpatient. Patient was instructed to follow up with PCP within one week and patient agrees. pt agrees with appointment made for her Gen: patient is a AAOx3, no distress CVS: S1-S2, RRR, no murmur Lungs: B/L CTA, no wheezing Abdomen: soft, no distention, no tenderness, positive bowel sounds Extremity: no leg edema or induration Time spent more than 35 minutes Plan - Discharge Summary Discharge Rx Participant: No New Discharge Prescriptions: New Ibuprofen [Motrin] 600 mg PO BID PRN 2 Days #4 tab PRN Reason: Fever And/Or Moderate Pain Famotidine [Pepcid] 20 mg PO BID #60 tablet predniSONE 10 mg PO DIRECTED #30 tab Oseltamivir [Tamiflu] 75 mg PO Q12HR 2 Days #3 cap Acetaminophen Tab [Tylenol] 650 mg PO Q6HR PRN tab PRN Reason: Fever And/ Or Pain guaiFENesin-DM 100-10MG/5ML [Robitussin DM] 10 ml PO Q6HR 3 Days #120 ml Continue Budesonide/Formoterol Fumarate [Symbicort 160-4.5 Mcg Inhaler] 2 puff INHALATION RT-BID PRN PRN Reason: Shortness Of Breath Multivitamins, Thera [Multivitamin (formulary)] 1 tab PO DAILY Metoprolol Succinate [Toprol XL] 25 mg PO DAILY Cetirizine HCl [Zyrtec] 10 mg PO DAILY Aspirin EC [Ecotrin Low Dose] 81 mg PO DAILY Rosuvastatin [Crestor] 10 mg PO DAILY predniSONE [Deltasone] 20 mg PO DAILY Azithromycin [Zithromax Z-pack] See Taper PO DAILY Ipratropium-Albuterol Nebulize [Duoneb 0.5 mg-3 mg/3 ml Soln] 3 ml INHALATION RT-TID PRN #1 neb PRN Reason: Shortness Of Breath Discharge Medication List Aspirin EC [Ecotrin Low Dose] 81 mg PO DAILY 06/06/19 [History] Azithromycin [Zithromax Z-pack] See Taper PO DAILY 06/06/19 [History] Budesonide/Formoterol Fumarate [Symbicort 160-4.5 Mcg Inhaler] 2 puff INHALATION RT-BID PRN 06/06/19 [History] Cetirizine HCl [Zyrtec] 10 mg PO DAILY 06/06/19 [History] Metoprolol Succinate [Toprol XL] 25 mg PO DAILY 06/06/19 [History] Multivitamins, Thera [Multivitamin (formulary)] 1 tab PO DAILY 06/06/19 [History] Rosuvastatin [Crestor] 10 mg PO DAILY 06/06/19 [History] predniSONE [Deltasone] 20 mg PO DAILY 06/06/19 [History] Acetaminophen Tab [Tylenol] 650 mg PO Q6HR PRN tab 06/09/19 [Rx] Famotidine [Pepcid] 20 mg PO BID #60 tablet 06/09/19 [Rx] Ibuprofen [Motrin] 600 mg PO BID PRN 2 Days #4 tab 06/09/19 [Rx] Ipratropium-Albuterol Nebulize [Duoneb 0.5 mg-3 mg/3 ml Soln] 3 ml INHALATION RT-TID PRN #1 neb 06/09/19 [Rx] Oseltamivir [Tamiflu] 75 mg PO Q12HR 2 Days #3 cap 06/09/19 [Rx] guaiFENesin-DM 100-10MG/5ML [Robitussin DM] 10 ml PO Q6HR 3 Days #120 ml 06/09/19 [Rx] predniSONE 10 mg PO DIRECTED #30 tab 06/09/19 [Rx] Follow up Appointment(s)/Referral(s): [facility] [NON-STAFF] - (Supplies Home oxygen) David Cook DO [Doctor of Osteopathic Medicine] - 06/16/19 8:15 am Jazlyn Delgado MD [Primary Care Provider] - 06/11/19 2:15 pm Patient Instructions/Handouts: Influenza (DC) Discharge Disposition: HOME SELF-CARE
== END 2019-06-09 17:18 | disposition home or self-care (01) | DRG 190 ==
LOC: EC 07:38 → 6NMEDSUR 09:44
PROVIDERS: ADMIT Hospitalist; ATTEND Hospitalist
DX: J44.1 Chronic obstructive pulmonary disease with (acute) exacerbation (principal); J96.01 Acute respiratory failure with hypoxia; J10.1 Influenza due to other identified influenza virus with other respiratory manifestations; F17.210 Nicotine dependence, cigarettes, uncomplicated; E78.5 Hyperlipidemia, unspecified; I10 Essential (primary) hypertension; I48.91 Unspecified atrial fibrillation; Z79.51 Long term (current) use of inhaled steroids; Z79.82 Long term (current) use of aspirin; Z79.899 Other long term (current) drug therapy; Z82.5 Family history of asthma and other chronic lower respiratory diseases; Z85.828 Personal history of other malignant neoplasm of skin; Z87.01 Personal history of pneumonia (recurrent); Z98.51 Tubal ligation status
CPT/HCPCS: 36415; 71046; 80048; 80053; 81001; 83605; 85025; 85610; 85730; 87040; 87502; 93005; 94640; 94760; 96374; 99285

== ENCOUNTER 2022-08-05 16:13 | Emergency (ER) | payer MEDICARE ==
[2022-08-05 16:19] VITALS: TEMP 98.6
--- NOTE | 2022-08-05 16:23 | ED ---
General Adult HPI - General Chief complaint: Shortness of Breath Stated complaint: JESÚS Time Seen by Provider: 08/05/22 16:20 Source: patient Mode of arrival: ambulatory Limitations: no limitations - History of Present Illness Initial comments: Patient presents to the ED with her son for evaluation. Patient states that she was exposed to "the red tide" while she was in [place] about a week ago, and she says that she has had waxing and waning dyspnea since then. Patient states that her dyspnea has become worse since about 4 AM this morning. Patient states that she has also had a slight cough, as well as a headache. Patient states that she has COPD, and she states that she has been using her nebulizer machine with some relief. Patient denies fever or chills, sudden onset of headache, trauma or injury, LOC, neck pain or stiffness, focal numbness/weakness/neuro deficit, sore throat, chest pain, hemoptysis, palpitations, dizziness, nausea/vomi ting/diaphoresis, abdominal pain, diarrhea, blood or melanotic stool, dysuria or urinary symptoms, decreased urine output, leg or calf swelling or pain, or any other symptoms or complaints. - Related Data Home Medications Medication Instructions Recorded Confirmed Aspirin EC [Ecotrin Low Dose] 81 mg PO DAILY 06/06/19 06/06/19 Azithromycin [Zithromax Z-pack (6 See Taper PO DAILY 06/06/19 06/06/19 tabs)] Budesonide/Formoterol Fumarate 2 puff INHALATION RT-BID PRN 06/06/19 06/06/19 [Symbicort 160-4.5 Mcg Inhaler] Cetirizine HCl [Zyrtec] 10 mg PO DAILY 06/06/19 06/06/19 Metoprolol Succinate [Toprol XL] 25 mg PO DAILY 06/06/19 06/06/19 Multivitamins, Thera [Multivitamin 1 tab PO DAILY 06/06/19 06/06/19 (formulary)] Rosuvastatin [Crestor] 10 mg PO DAILY 06/06/19 06/06/19 predniSONE [Deltasone] 20 mg PO DAILY 06/06/19 06/06/19 Previous Rx's Medication Instructions Recorded Acetaminophen Tab [Tylenol] 650 mg PO Q6HR PRN tab 06/09/19 Famotidine [Pepcid] 20 mg PO BID #60 tablet 06/09/19 Ibuprofen [Motrin] 600 mg PO BID PRN 2 Days #4 tab 06/09/19 Ipratropium-Albuterol Nebulize 3 ml INHALATION RT-TID PRN #1 neb 06/09/19 [Duoneb 0.5 mg-3 mg/3 ml Soln] Oseltamivir [Tamiflu] 75 mg PO Q12HR 2 Days #3 cap 06/09/19 guaiFENesin-DM 100-10MG/5ML 10 ml PO Q6HR 3 Days #120 ml 06/09/19 [Robitussin DM] predniSONE 10 mg PO DIRECTED #30 tab 06/09/19 predniSONE [Deltasone] 20 mg PO BID #10 tab 08/05/22 Allergies Allergy/AdvReac Type Severity Reaction Status Date / Time No Known Allergies Allergy Verified 08/05/22 16:18 Review of Systems ROS Statement: Those systems with pertinent positive or pertinent negative responses have been documented in the HPI. ROS Other: All systems not noted in ROS Statement are negative. Past Medical History Past Medical History: Atrial Fibrillation, Cancer, COPD, Diabetes Mellitus, Hyperlipidemia, Pneumonia Additional Past Medical History / Comment(s): L leg skin cancer with removal, bronchitis. History of Any Multi-Drug Resistant Organisms: None Reported Past Surgical History: Orthopedic Surgery, Tubal Ligation Additional Past Surgical History / Comment(s): L leg skin cancer removal, colonoscopy. Past Anesthesia/Blood Transfusion Reactions: No Reported Reaction Past Psychological History: No Psychological Hx Reported Smoking Status: Never smoker Past Alcohol Use History: Occasional Past Drug Use History: None Reported - Past Family History Father Family Medical History: No Reported History Additional Family Medical History / Comment(s): Father lived to be 85 yrs. Mother Family Medical History: COPD Additional Family Medical History / Comment(s): Mother of COPD at the age of 84 yrs. She was a smoker. General Exam Limitations: no limitations General appearance: alert, in no apparent distress Head exam: Present: atraumatic, normocephalic Eye exam: Present: normal appearance, PERRL, EOMI ENT exam: Present: normal oropharynx, mucous membranes moist Neck exam: Present: other (Trachea is in midline). Absent: tenderness, meningismus Respiratory exam: Present: other (Scattered expiratory wheezes bilaterally). Absent: respiratory distress, rales, rhonchi, stridor Cardiovascular Exam: Present: normal rhythm, tachycardia, normal heart sounds, other (Normal radial pulses bilaterally) GI/Abdominal exam: Present: soft. Absent: distended, tenderness, guarding Extremities exam: Present: other (Negative Homans sign bilaterally). Absent: tenderness, pedal edema, calf tenderness Neurological exam: Present: alert, oriented X3, CN II-XII intact. Absent: motor sensory deficit Psychiatric exam: Present: normal affect, normal mood Skin exam: Present: warm, dry, intact, normal color Course Vital Signs 08/05/22 08/05/22 08/05/22 16:15 17:20 17:26 Temperature 98.6 F Pulse Rate 108 H 98 Respiratory 24 18 Rate Blood Pressure 71/50 O2 Sat by Pulse 87 L Oximetry 08/05/22 08/05/22 08/05/22 17:29 18:06 18:23 Temperature Pulse Rate 100 101 H Respiratory 18 Rate Blood Pressure 115/75 O2 Sat by Pulse 96 93 L Oximetry - Reevaluation(s) Reevaluation #1: 08/05/22 18:26 Patient states that her dyspnea has improved with the DuoNeb treatment that she was given in the ED. Patient denies development of any new symptoms while in the ED. Patient currently has an O2 sat 92% on room air. Patient and son are aware of the patient's test results, and patient feels comfortable going home with her son at this time. She was counseled about COPD exacerbations and COVID-19. She was clearly explained return and follow-up instructions, and she was instructed to follow up closely with her primary care provider. She was counseled about isolation precautions as well. She feels comfortable with this plan. EKG Findings - EKG Comments: EKG Findings:: ED physician interpretation: Sinus tachycardia, ventricular rate of 101 bpm, no ectopy, normal [place] and QRS intervals, normal QT interval, borderline left axis deviation, no ST or T-wave abnormality Medical Decision Making - Medical Decision Making Was pt. sent in by a medical professional or institution (, PA, ROAD DESIGN ENGINEER, urgent care, hospital, or long term...) When possible be specific @ -No Did you speak to anyone other than the patient for history (EMS, parent, family, police, friend...)? What history was obtained from this source @ -No Did you review nursing and triage notes (agree or disagree)? Why? @ -I reviewed and agree with nursing and triage notes Were old charts reviewed (outside hosp., previous admission, EMS record, old EKG, old radiological studies, urgent care reports/EKG's, long term records)? Report findings @ -No old charts were reviewed Differential Diagnosis (chest pain, altered mental status, abdominal pain women, abdominal pain men, vaginal bleeding, weakness, fever, dyspnea, syncope, headache, dizziness, GI bleed, back pain, seizure, CVA, palpatations, mental health, musculoskeletal)? @ -Differential Dyspnea: Coronary syndrome, arrhythmia, asthma, COPD, pulmonary embolism, pneumonia, pneumothorax, pulmonary effusion, URI, viral illness, influenza, Covid, anemia, neuromuscular, this is not meant to be an all-inclusive list. EKG interpreted by me (3pts min.). @ -As above X-rays interpreted by me (1pt min.). @ -Chest x-ray was reviewed myself, and I agree with the radiologist's interpretation as above. CT interpreted by me (1pt min.). @ -None done U/S interpreted by me (1pt. min.). @ -None done What testing was considered but not performed or refused? (CT, X-rays, U/S, labs)? Why? @ -None What meds were considered but not given or refused? Why? @ -None Did you discuss the management of the patient with other professionals (professionals i.e. , PA, ROAD DESIGN ENGINEER, lab, RT, psych nurse, director social, commercial drafter, teacher, administrative officer, case finisher)? Give summary @ -No Was smoking cessation discussed for >3mins.? @ -No Was critical care preformed (if so, how long)? @ -No Were there social determinants of health that impacted care today? How? (Homelessness, low income, unemployed, alcoholism, drug addiction, transportation, low edu. Level, literacy, decrease access to med. care, nursing home, rehab)? @ -No Was there de-escalation of care discussed even if they declined (Discuss DNR or withdrawal of care, Hospice)? DNR status @ -No What co-morbidities impacted this encounter? (DM, HTN, Smoking, COPD, CAD, Cancer, CVA, ARF, Chemo, Hep., AIDS, mental health diagnosis, sleep apnea, morb id obesity)? @ -None Was patient admitted / discharged? Hospital course, mention meds given and route, prescriptions, significant lab abnormalities, going to OR and other pertinent info. @ -Patient was treated with a DuoNeb treatment and oral prednisone in the ED. Patient reports improvement in her dyspnea. Patient's Covid test is positive. Patient's cardiac labs and d-dimer are within normal limits. The rest of the patient's labs are fairly unremarkable. Patient's chest x-ray is unremarkable as well. I suspect that the patient's symptoms are due to COPD exacerbation and COVID-19 infection. Will discharge patient home with her son at this time with a prescription for a course of prednisone. Patient feels comfortable with this plan. Undiagnosed new problem with uncertain prognosis? @ -No Drug Therapy requiring intensive monitoring for toxicity (Heparin, Nitro, Insul in, Cardizem)? @ -No Were any procedures done? @ -No Diagnosis/symptom? @ -COPD exacerbation Acute, or Chronic, or Acute on Chronic? @ -Acute Uncomplicated (without systemic symptoms) or Complicated (systemic symptoms)? @ -Uncomplicated Side effects of treatment? @ -No Exacerbation, Progression, or Severe Exacerbation? @ -Exacerbation Poses a threat to life or bodily function? How? (Chest pain, [place], [place], pneumonia, PE, COPD, DKA, ARF, appy, cholecystitis, CVA, Diverticulitis, Homicidal, Suicidal, threat to staff... and all critical care pts) @ -No Diagnosis/symptom? @ -COVID-19 Acute, or Chronic, or Acute on Chronic? @ -Acute Uncomplicated (without systemic symptoms) or Complicated (systemic symptoms)? @ -Uncomplicated Side effects of treatment? @ -none Exacerbation, Progression, or Severe Exacerbation] @ -no Poses a threat to life or bodily function? @ -no - Lab Data Result diagrams: 08/05/22 16:53 08/05/22 16:53 Lab Results 08/05/22 08/05/22 08/05/22 Range/Units 16:53 16:53 16:53 WBC 11.1 H (3.8-10.6) k/uL RBC 4.72 (3.80-5.40) m/uL Hgb 14.2 (11.4-16.0) gm/dL Hct 42.8 (34.0-46.0) % MCV 90.8 (80.0-100.0) fL MCH 30.0 (25.0-35.0) pg MCHC 33.1 (31.0-37.0) g/dL RDW 12.6 (11.5-15.5) % Plt Count 268 (150-450) k/uL MPV 7.8 Neutrophils % 87 % Lymphocytes % 4 % Monocytes % 6 % Eosinophils % 1 % Basophils % 0 % Neutrophils # 9.7 H (1.3-7.7) k/uL Lymphocytes # 0.5 L (1.0-4.8) k/uL Monocytes # 0.7 (0-1.0) k/uL Eosinophils # 0.1 (0-0.7) k/uL Basophils # 0.0 (0-0.2) k/uL PT 10.0 (9.0-12.0) sec INR 0.9 (<1.2) APTT 24.4 (22.0-30.0) sec D-Dimer 0.52 (<0.60) mg/L FEU Sodium 134 L (137-145) mmol/L Potassium 4.8 (3.5-5.1) mmol/L Chloride 98 (98-107) mmol/L Carbon Dioxide 25 (22-30) mmol/L Anion Gap 11 mmol/L BUN 19 H (7-17) mg/dL Creatinine 0.75 (0.52-1.04) mg/dL Est GFR (CKD-EPI)AfAm >90 (>60 ml/min/1.73 sqM) Est GFR (CKD-EPI)NonAf 82 (>60 ml/min/1.73 sqM) Glucose 121 H (74-99) mg/dL Calcium 9.2 (8.4-10.2) mg/dL Total Bilirubin 0.7 (0.2-1.3) mg/dL AST 73 H (14-36) U/L ALT 67 H (4-34) U/L Alkaline Phosphatase 72 (38-126) U/L Troponin I (0.000-0.034) ng/mL NT-Pro-B Natriuret Pep pg/mL Total Protein 8.4 H (6.3-8.2) g/dL Albumin 4.9 (3.5-5.0) g/dL Influenza Type A (PCR) (Not Detectd) Influenza Type B (PCR) (Not Detectd) RSV (PCR) (Not Detectd) SARS-CoV-2 (PCR) (Not Detectd) 08/05/22 08/05/22 08/05/22 Range/Units 16:53 16:53 16:55 WBC (3.8-10.6) k/uL RBC (3.80-5.40) m/uL Hgb (11.4-16.0) gm/dL Hct (34.0-46.0) % MCV (80.0-100.0) fL MCH (25.0-35.0) pg MCHC (31.0-37.0) g/dL RDW (11.5-15.5) % Plt Count (150-450) k/uL MPV Neutrophils % % Lymphocytes % % Monocytes % % Eosinophils % % Basophils % % Neutrophils # (1.3-7.7) k/uL Lymphocytes # (1.0-4.8) k/uL Monocytes # (0-1.0) k/uL Eosinophils # (0-0.7) k/uL Basophils # (0-0.2) k/uL PT (9.0-12.0) sec INR (<1.2) APTT (22.0-30.0) sec D-Dimer (<0.60) mg/L FEU Sodium (137-145) mmol/L Potassium (3.5-5.1) mmol/L Chloride (98-107) mmol/L Carbon Dioxide (22-30) mmol/L Anion Gap mmol/L BUN (7-17) mg/dL Creatinine (0.52-1.04) mg/dL Est GFR (CKD-EPI)AfAm (>60 ml/min/1.73 sqM) Est GFR (CKD-EPI)NonAf (>60 ml/min/1.73 sqM) Glucose (74-99) mg/dL Calcium (8.4-10.2) mg/dL Total Bilirubin (0.2-1.3) mg/dL AST (14-36) U/L ALT (4-34) U/L Alkaline Phosphatase (38-126) U/L Troponin I <0.012 (0.000-0.034) ng/mL NT-Pro-B Natriuret Pep 47 pg/mL Total Protein (6.3-8.2) g/dL Albumin (3.5-5.0) g/dL Influenza Type A (PCR) Not Detected (Not Detectd) Influenza Type B (PCR) Not Detected (Not Detectd) RSV (PCR) Not Detected (Not Detectd) SARS-CoV-2 (PCR) Detected A (Not Detectd) - Radiology Data Chest x-ray: No cardiopulmonary disease. No change. Disposition Clinical Impression: COPD exacerbation, COVID-19 Disposition: HOME SELF-CARE Condition: Stable Instructions (If sedation given, give patient instructions): COPD (Chronic Ob structive Pulmonary Disease) (ED), COVID-19 (Coronavirus Disease 2019) (ED) Additional Instructions: Return to the ER immediately should you develop increased shortness of breath, chest pain, a high fever, vomiting, feeling dizzy or faint, or new or worsening symptoms. Follow up closely with your primary care provider. Prescriptions: predniSONE [Deltasone] 20 mg PO BID #10 tab Is patient prescribed a controlled substance at d/c from ED?: No Referrals: Jazlyn Delgado MD [Primary Care Provider] - 1-2 days Time of Disposition: 18:32
[2022-08-05] MEDS ORDERED: predniSONE 20 MG TAB PO STA (16:33)
[2022-08-05] MEDS ORDERED: IPRATROPIUM-ALBUTEROL 3 ML NEB INHALATION STA (16:33)
--- NOTE | 2022-08-05 17:25 | XR ---
EXAMINATION TYPE: XR chest 2V DATE OF EXAM: 08/05/2022 COMPARISON: 06/06/2019 HISTORY: Short of breath TECHNIQUE: 3 views FINDINGS: Heart and mediastinum are normal. Lungs are clear. Diaphragm is normal. Bony thorax is norm al. The pulmonary vascularity is normal. IMPRESSION: No cardiopulmonary disease. No change.
[2022-08-05 17:27] VITALS: RESP 18
[2022-08-05 17:32] LABS: Basophils % (A) 0 %; Eosinophils # (A) 0.1 k/uL (0-0.7); Eosinophils % (A) 1 %; HCT 42.8 % (34.0-46.0); HGB 14.2 gm/dL (11.4-16.0); Lymphocytes # (A) 0.5 k/uL (1.0-4.8); Lymphocytes % (A) 4 %; MCHC 33.1 g/dL (31.0-37.0); MCV 90.8 fL (80.0-100.0); Mean Platelet Volume 7.8; Monocytes # (A) 0.7 k/uL (0-1.0); Monocytes % (A) 6 %; Neutrophils # (A) 9.7 k/uL (1.3-7.7); Neutrophils % (A) 87 %; Platelet Count 268 k/uL (150-450); RBC 4.72 m/uL (3.80-5.40); RDW 12.6 % (11.5-15.5); WBC 11.1 k/uL (3.8-10.6)
[2022-08-05 17:50] LABS: INR 0.9 (<1.2); Partial Thromboplastin Time 24.4 sec (22.0-30.0)
[2022-08-05 17:52] LABS: ALT 67 U/L (4-34); AST 73 U/L (14-36); African American GFR (CKD) >90 (>60 ml/min/1.73 sqM); Albumin 4.9 g/dL (3.5-5.0); Alkaline Phosphatase 72 U/L (38-126); Anion Gap 11 mmol/L; Blood Urea Nitrogen 19 mg/dL (7-17); Calcium 9.2 mg/dL (8.4-10.2); Carbon Dioxide 25 mmol/L (22-30); Chloride 98 mmol/L (98-107); Glucose 121 mg/dL (74-99); Non-African American GFR(CKD) 82 (>60 ml/min/1.73 sqM); Sodium 134 mmol/L (137-145); Total Bilirubin 0.7 mg/dL (0.2-1.3); Total Protein 8.4 g/dL (6.3-8.2)
[2022-08-05 18:02] LABS: Potassium 4.8 mmol/L (3.5-5.1)
[2022-08-05 18:07] VITALS: BP 115/75; PULSE 101
== END 2022-08-05 18:38 | disposition home or self-care (01) ==
LOC: EC 16:13
DX: U07.1 COVID-19 (principal); J44.1 Chronic obstructive pulmonary disease with (acute) exacerbation; E11.9 Type 2 diabetes mellitus without complications; E78.5 Hyperlipidemia, unspecified; Z79.82 Long term (current) use of aspirin; Z79.51 Long term (current) use of inhaled steroids; Z79.52 Long term (current) use of systemic steroids; Z79.899 Other long term (current) drug therapy
CPT/HCPCS: 36415; 94640; 93005; 85379; 83880; 80053; 84484; 85025; 85610; 85730; 87636; 71046; 99285; J7512

== ENCOUNTER 2024-08-01 12:46 | Observation (INO) | payer MEDICARE ==
[2024-08-01 13:13] LABS: Basophils % (A) 1 %; Eosinophils # (A) 0.3 k/uL (0-0.7); Eosinophils % (A) 3 %; HCT 43.7 % (34.0-46.0); HGB 13.9 gm/dL (11.4-16.0); Lymphocytes % (A) 21 %; MCHC 31.8 g/dL (31.0-37.0); MCV 91.2 fL (80.0-100.0); Mean Platelet Volume 7.4; Monocytes # (A) 0.4 k/uL (0-1.0); Monocytes % (A) 5 %; Neutrophils # (A) 6.4 k/uL (1.3-7.7); Neutrophils % (A) 68 %; Platelet Count 248 k/uL (150-450); RBC 4.79 m/uL (3.80-5.40); RDW 13.3 % (11.5-15.5); WBC 9.4 k/uL (3.8-10.6)
[2024-08-01 13:23] LABS: ALT 25 U/L (4-34); African American GFR (CKD) >90 (>60 ml/min/1.73 sqM); Anion Gap 9 mmol/L; Blood Urea Nitrogen 20 mg/dL (7-17); Calcium 9.7 mg/dL (8.4-10.2); Carbon Dioxide 26 mmol/L (22-30); Chloride 102 mmol/L (98-107); Glucose 115 mg/dL (74-99); INR 0.9 (<1.2); Non-African American GFR(CKD) >90 (>60 ml/min/1.73 sqM); Prothrombin Time 10.1 sec (10.0-12.5); Sodium 137 mmol/L (137-145); Total Bilirubin 0.8 mg/dL (0.2-1.3)
[2024-08-01 13:31] LABS: AST 35 U/L (14-36); Albumin 4.7 g/dL (3.5-5.0); Alkaline Phosphatase 46 U/L (38-126); Potassium 5.2 mmol/L (3.5-5.1); Total Protein 7.8 g/dL (6.3-8.2)
[2024-08-01 13:33] LABS: Partial Thromboplastin Time 20.9 sec (22.0-30.0)
--- NOTE | 2024-08-01 14:35 | ED ---
General Adult HPI - General Chief complaint: Chest Pain Stated complaint: Chest pain Time Seen by Provider: 08/01/24 14:01 Source: patient Mode of arrival: ambulatory Limitations: no limitations - History of Present Illness Initial comments: Patient is a 68-year-old female, history of A-fib, diabetes presenting today for intermittent chest pain and lightheadedness. Patient states she had a dobutamine stress test yesterday evening and it was stopped due to the symptoms she presents w/ today. Began having lighteadedness and intermittent lightheadedness during her stress test yesterday evening and it has continued throughout the day today as well as noting generalized weakness. Chest pain is left sided. Noted intermittent associated palpitations. Patient has never had a heart attack in the past. She is unsure of the results of her stress test. Stress test was being done because she says she has been feeling unwell since having COVID-19 last fall. She is currently asymptomatic at rest. Does endorse chronic shortness of breath secondary to see history of COPD and remote smoking history. Denies cough hemoptysis. Denies fevers or chills. - Related Data Home Medications Medication Instructions Recorded Confirmed Aspirin EC [Ecotrin Low Dose] 81 mg PO DAILY 06/06/19 08/01/24 Budesonide/Formoterol Fumarate 2 puff INHALATION RT-BID 06/06/19 08/01/24 [Symbicort 160-4.5 Mcg Inhaler] Cetirizine HCl [Zyrtec] 10 mg PO DAILY 06/06/19 08/01/24 Calcium Phos/D3/Magnesium/Zinc 1 tab PO DAILY 08/01/24 08/01/24 [Ekbezyb-Lkm-Spkt-Vitamin D3] Collagen/Biotin/Ascorbic Acid 1 cap PO DAILY 08/01/24 08/01/24 [Collagen 1500 Plus C Capsule] Ibuprofen [Advil] 400 mg PO HS 08/01/24 08/01/24 Multivit-Min/Iron/Folic/Lutein 1 tab PO DAILY 08/01/24 08/01/24 [Centrum Silver Women Tablet] Potassium Gluconate 99 mg PO DAILY 08/01/24 08/01/24 Rosuvastatin [Crestor] 20 mg PO DAILY 08/01/24 08/01/24 Venlafaxine HCl [Effexor XR] 75 mg PO DAILY 08/01/24 08/01/24 metFORMIN HCL [Glucophage] 500 mg PO BID 08/01/24 08/01/24 Previous Rx's Medication Instructions Recorded Losartan [Cozaar] 25 mg PO DAILY@1800 #30 tab 08/02/24 Metoprolol Succinate (ER) [Toprol 50 mg PO DAILY #30 tab 08/02/24 XL] Pantoprazole [Protonix] 40 mg PO AC-BRKFST #20 tab 08/02/24 Allergies Allergy/AdvReac Type Severity Reaction Status Date / Time No Known Allergies Allergy Verified 08/01/24 16:14 Review of Systems ROS Statement: Those systems with pertinent positive or pertinent negative responses have been documented in the HPI. ROS Other: All systems not noted in ROS Statement are negative. Past Medical History Past Medical History: Atrial Fibrillation, Cancer, COPD, Diabetes Mellitus, Hyperlipidemia, Pneumonia Additional Past Medical History / Comment(s): L leg skin cancer with removal, bronchitis. History of Any Multi-Drug Resistant Organisms: None Reported Past Surgical History: Orthopedic Surgery, Tubal Ligation Additional Past Surgical History / Comment(s): L leg skin cancer removal, colonoscopy. Past Anesthesia/Blood Transfusion Reactions: No Reported Reaction Past Psychological History: No Psychological Hx Reported Smoking Status: Never smoker Past Alcohol Use History: Occasional Past Drug Use History: None Reported - Past Family History Father Family Medical History: No Reported History Additional Family Medical History / Comment(s): Father lived to be 85 yrs. Mother Family Medical History: COPD Additional Family Medical History / Comment(s): Mother of COPD at the age of 84 yrs. She was a smoker. General Exam - General Exam Comments Initial Comments: PE: CONSTITUTIONAL: No apparent distress, well appearing SKIN: Warm, dry, no jaundice, hives or petechiae EYES: Pupils are equally round, extraocular movements intact without nystagmus, clear conjunctiva, non-icteric sclera HENT: Normocephalic, atraumatic, moist mucus membranes, oropharynx clear without exudates NECK: , Full range of motion, normal appearance PULMONARY: Scant wheezes bilaterally, without rhonchi, or rales, normal excursion, no accessory muscle use and no stridor CARDIOVASCULAR: Regular rate, rhythm, normal S1 and S2. No appreciated murmurs, rubs or gallops. Strong radial pulses with intact distal perfusion. No lower extremity edema GASTROINTESTINAL: Soft, active bowel sounds throughout, non-tender, non- distended, no palpable masses, no rebound or guarding. No hepatosplenomegaly MUSCULOSKELETAL: Extremities have no gross deformity NEUROLOGIC:_a/o x 3, GCS 15, normal mentation and speech. Moves all extremities x 4 without motor or sensory deficit PSYCHIATRIC:_normal mood and affect, thought process is clear and linear Limitations: no limitations Course Vital Signs 08/01/24 08/01/24 08/01/24 12:48 14:06 16:00 Temperature 97.5 F L Pulse Rate 93 87 75 Respiratory 18 18 18 Rate Blood Pressure 135/79 143/92 148/100 O2 Sat by Pulse 93 L 97 96 Oximetry 08/01/24 08/01/24 08/01/24 17:53 18:07 20:25 Temperature Pulse Rate 79 79 74 Respiratory 16 18 18 Rate Blood Pressure 134/104 178/79 142/76 O2 Sat by Pulse 98 95 95 Oximetry EKG Findings - EKG Comments: EKG Findings:: Sinus rhythm with PVC, rate 90 bpm MS interval 131 ms QT/QTc 362/412 ms, normal axis, Q-wave lead V3, no ST elevations or depressions Medical Decision Making - Medical Decision Making Was pt. sent in by a medical professional or institution (, HANS, FOOD CHECKERS AND CASHIERS SUPERVISOR, urgent care, hospital, or half-way...) When possible be specific @ -No Did you speak to anyone other than the patient for history (EMS, parent, family, police, friend...)? What history was obtained from this source @ -No Did you review nursing and triage notes (agree or disagree)? Why? @ -I reviewed nursing and triage notes-states that patient complained of chest pain, of note the patient arrives complaining of intermittent chest pain, currently denies symptoms Were old charts reviewed (outside hosp., previous admission, EMS record, old EKG, old radiological studies, urgent care reports/EKG's, half-way records)? Report findings @ -Medical records reviewed- patient last visited the ED on 08/05/2022 for dyspnea after being exposed to "red tide". During that visit patient had an unremarkable chest x-ray Differential Diagnosis (chest pain, altered mental status, abdominal pain women, abdominal pain men, vaginal bleeding, weakness, fever, dyspnea, syncope, headache, dizziness, GI bleed, back pain, seizure, CVA, palpatations, mental health, musculoskeletal)? Differential diagnosis remains broad over top considerations include stable and not, unstable angina, NSTEMI, [place], arrhythmia, electrolyte abnormality, anemia, pneumonia, COPD exacerbation, viral infection, stress this is not all-inclusive list EKG interpreted by me (3pts min.). @ -As above X-rays interpreted by me (1pt min.). @ -I personally viewed chest x-ray, I see no evidence of cardiomegaly, consolidations or pleural effusions CT interpreted by me (1pt min.). @ -None done U/S interpreted by me (1pt. min.). @ -None done What testing was considered but not performed or refused? (CT, X-rays, U/S, labs)? Why? @ -None What meds were considered but not given or refused? Why? @ -None Did you discuss the management of the patient with other professionals (professionals i.e. , PA, FO[employer]ERS [employer] SUPERVISOR, lab, RT, psych nurse, geriatric social work professor, machine setup operator, teacher, correctional officer lieutenant, watch case polisher)? Give summary @ -No Was smoking cessation discussed for >3mins.? @ -No Was critical care preformed (if so, how long)? @ -No Were there social determinants of health that impacted care today? How? (Homelessness, low income, unemployed, alcoholism, drug addiction, transportation, low edu. Level, literacy, decrease access to med. care, detention, rehab)? @ -No Was there de-escalation of care discussed even if they declined (Discuss DNR or withdrawal of care, Hospice)? @ -No What co-morbidities impacted this encounter? (DM, HTN, Smoking, COPD, CAD, Cancer, CVA, ARF, Chemo, Hep., AIDS, mental health diagnosis, sleep apnea, morbid obesity)? @COPD, atrial fibrillation Was patient admitted / discharged? Hospital course, mention meds given and route, prescriptions, significant lab abnormalities, going to OR and other pertinent info. @Admission for observation- This is 68-year-old female presenting today 1 day status post dobutamine stress test for intermittent chest pain, palpitations and lightheadedness worse w/ activity. Labs and orders were initially placed as part of [facility] protocol by triage nurse and patient did spend time in the waiting room prior to my assessment, due to overflow boarding in the emergency department.Labs reviewed, her CBC is unremarkable, potassium was 5.2 that was slightly hemolyzed with a repeat will be drawn, BUN 20, troponin is 0.018, EKG does not show signs of STEMI or ST depressions. On my assessment patient is resting comfortably no acute distress. Scant wheezes bilaterally. Intermittent PVCs on telemetry. Discussed with patient plan for admission due to reaction to dobutamine stress test. Will trend troponin. Patient agreeable plan of care. Case was discussed with Dr. Ortega who kindly accepted patient for admission. Undiagnosed new problem with uncertain prognosis? @ -No Drug Therapy requiring intensive monitoring for toxicity (Heparin, Nitro, Insulin, Cardizem)? @ -No Were any procedures done? @ -No Diagnosis/symptom? @ -Chest pain, palpitations Acute, or Chronic, or Acute on Chronic? @acute Uncomplicated (without systemic symptoms) or Complicated (systemic symptoms)? complicated Side effects of treatment? @ -No Exacerbation, Progression, or Severe Exacerbation? @ -No Poses a threat to life or bodily function? How? (Chest pain, USA, WA, pneumonia, PE, COPD, DKA, ARF, appy, cholecystitis, CVA, Diverticulitis, Homicidal, Suicidal, threat to staff... and all critical care pts) @ Potentially if 2/2 ACS - Lab Data Result diagrams: 08/01/24 12:58 08/01/24 18:04 Lab Results 08/01/24 08/01/24 08/01/24 Range/Units 12:58 12:58 12:58 WBC 9.4 (3.8-10.6) k/uL RBC 4.79 (3.80-5.40) m/uL Hgb 13.9 (11.4-16.0) gm/dL Hct 43.7 (34.0-46.0) % MCV 91.2 (80.0-100.0) fL MCH 29.0 (25.0-35.0) pg MCHC 31.8 (31.0-37.0) g/dL RDW 13.3 (11.5-15.5) % Plt Count 248 (150-450) k/uL MPV 7.4 Neutrophils % 68 % Lymphocytes % 21 % Monocytes % 5 % Eosinophils % 3 % Basophils % 1 % Neutrophils # 6.4 (1.3-7.7) k/uL Lymphocytes # 2.0 (1.0-4.8) k/uL Monocytes # 0.4 (0-1.0) k/uL Eosinophils # 0.3 (0-0.7) k/uL Basophils # 0.0 (0-0.2) k/uL PT 10.1 (10.0-12.5) sec INR 0.9 (<1.2) APTT 20.9 L (22.0-30.0) sec Sodium 137 (137-145) mmol/L Potassium 5.2 H (3.5-5.1) mmol/L Chloride 102 (98-107) mmol/L Carbon Dioxide 26 (22-30) mmol/L Anion Gap 9 mmol/L BUN 20 H (7-17) mg/dL Creatinine 0.62 (0.52-1.04) mg/dL Est GFR (CKD-EPI)AfAm >90 (>60 ml/min/1.73 sqM) Est GFR (CKD-EPI)NonAf >90 (>60 ml/min/1.73 sqM) Glucose 115 H (74-99) mg/dL Calcium 9.7 (8.4-10.2) mg/dL Magnesium 2.0 (1.6-2.3) mg/dL Total Bilirubin 0.8 (0.2-1.3) mg/dL AST 35 (14-36) U/L ALT 25 (4-34) U/L Alkaline Phosphatase 46 (38-126) U/L Troponin I (0.000-0.034) ng/mL NT-Pro-B Natriuret Pep 45 pg/mL Total Protein 7.8 (6.3-8.2) g/dL Albumin 4.7 (3.5-5.0) g/dL Lipase 83 (23-300) U/L TSH 2.310 (0.465-4.680) mIU/L 08/01/24 Range/Units 12:58 WBC (3.8-10.6) k/uL RBC (3.80-5.40) m/uL Hgb (11.4-16.0) gm/dL Hct (34.0-46.0) % MCV (80.0-100.0) fL MCH (25.0-35.0) pg MCHC (31.0-37.0) g/dL RDW (11.5-15.5) % Plt Count (150-450) k/uL MPV Neutrophils % % Lymphocytes % % Monocytes % % Eosinophils % % Basophils % % Neutrophils # (1.3-7.7) k/uL Lymphocytes # (1.0-4.8) k/uL Monocytes # (0-1.0) k/uL Eosinophils # (0-0.7) k/uL Basophils # (0-0.2) k/uL PT (10.0-12.5) sec INR (<1.2) APTT (22.0-30.0) sec Sodium (137-145) mmol/L Potassium (3.5-5.1) mmol/L Chloride (98-107) mmol/L Carbon Dioxide (22-30) mmol/L Anion Gap mmol/L BUN (7-17) mg/dL Creatinine (0.52-1.04) mg/dL Est GFR (CKD-EPI)AfAm (>60 ml/min/1.73 sqM) Est GFR (CKD-EPI)NonAf (>60 ml/min/1.73 sqM) Glucose (74-99) mg/dL Calcium (8.4-10.2) mg/dL Magnesium (1.6-2.3) mg/dL Total Bilirubin (0.2-1.3) mg/dL AST (14-36) U/L ALT (4-34) U/L Alkaline Phosphatase (38-126) U/L Troponin I 0.018 (0.000-0.034) ng/mL NT-Pro-B Natriuret Pep pg/mL Total Protein (6.3-8.2) g/dL Albumin (3.5-5.0) g/dL Lipase (23-300) U/L TSH (0.465-4.680) mIU/L Disposition Clinical Impression: Chest pain Disposition: ADMITTED IP TO THIS HOSP Condition: Stable
--- NOTE | 2024-08-01 14:38 | XR ---
EXAMINATION TYPE: XR chest 2V DATE OF EXAM: 08/01/2024 2:34 PM COMPARISON: 08/05/2022 CLINICAL INDICATION: Female, 68 years old with history of Chest Pain: Shortness of breath TECHNIQUE: XR chest 2V views of the chest are obtained. FINDINGS: Scattered senescent parenchymal changes noted. Hyperinflation compatible with COPD. No evidence for infiltrate. No evidence for atelectasis. Heart size is stable. Mediastinal structures are stable and grossly unremarkable. No evidence for hilar prominence. Degenerative changes dorsal spine. IMPRESSION: 1. No evidence for acute pulmonary disease. [facility], , 08/01/2024 2:35 PM
[2024-08-01] MEDS: ASPIRIN 81 MG PO STA (15:02)
[2024-08-01] MEDS: SODIUM CHLORIDE 0.9% 1,000 ML IV ONE (15:02)
[2024-08-01] MEDS: MAGNESIUM SULFATE-D5W PMX 1 GM in DEXTROSE/WATER 1 100ML.BAG IVPB SCH (15:49)
[2024-08-01] MEDS ORDERED: ALPRAZolam 0.25 MG TAB PO PRN (16:47)
[2024-08-01] MEDS ORDERED: ACETAMINOPHEN TAB 500 MG TAB PO PRN (16:47)
[2024-08-01] MEDS ORDERED: TEMAZEPAM 15 MG CAP PO PRN (16:47)
[2024-08-01] MEDS ORDERED: HYDROcodone/APAP 5-325MG 1 EACH TAB PO PRN (16:47)
[2024-08-01] MEDS ORDERED: HYDROmorphone 0.5 MG/0.5 ML SYRINGE IVP PRN (16:47)
[2024-08-01] MEDS ORDERED: NITROGLYCERIN SL TABS 0.4 MG TAB SUBLINGUAL PRN (16:50)
[2024-08-01] MEDS ORDERED: MORPHINE SULFATE 2 MG/ML SYRINGE IVP PRN (16:51)
[2024-08-01 18:43] LABS: Lipase 83 U/L (23-300)
[2024-08-01 18:53] LABS: NT-Pro-B-Type Natriuretic Pept 45 pg/mL
[2024-08-01] MEDS: IBUPROFEN 400 MG TAB PO SCH (20:22)
[2024-08-01] MEDS: SYMBICORT 160-4.5 MCG INHALER INHALATION SCH (23:26)
--- NOTE | 2024-08-02 01:39 | HP ---
HISTORY AND PHYSICAL CHIEF COMPLAINT: Chest pain. HISTORY OF PRESENT ILLNESS: This 68-year-old woman with a past medical history of multiple medical problems including atrial fibrillation, diabetes mellitus, being followed by Dr. Delgado in the outpatient setting, had a stress test. Apparently, the patient has some difficulty during the dobutamine stress test. Subsequently, the patient has some lightheadedness and throughout the day was feeling sick and complained of generalized weakness, intermittent left-sided chest pain around the monitor and the patient came to [place], was admitted for evaluation. The patient was feeling unwell after COVID-19 in the fall. PAST MEDICAL HISTORY: Reviewed include atrial fibrillation, COPD, diabetes mellitus type 2. Rest of the history and rest of the chart are reviewed. HOME MEDICATIONS: Glucophage. Dose and rest of medications reviewed. ALLERGIES: None. FAMILY HISTORY: No history of heart disease or strokes in the family. SOCIAL HISTORY: No history of smoking. REVIEW OF SYSTEMS: Fourteen-point review of systems is negative except as mentioned earlier. PHYSICAL EXAMINATION: VITAL SIGNS: The patient's pulse is 87, blood pressure 143/92, and respirations 18. HEENT: Conjunctivae normal. NECK: No JVD. CARDIOVASCULAR: S1, S2. RESPIRATIONS: Breath sounds diminished at the bases. No rhonchi. No crackles. ABDOMEN: Soft and nontender. LEGS: No edema. NERVOUS SYSTEM: Nonfocal. LABORATORY DATA: Reviewed. ASSESSMENT: 1. Chest pain, possible unstable angina. 2. Atrial fibrillation. 3. Recent stress test. 4. Chronic obstructive pulmonary disease. 5. Diabetes mellitus, type 2. 6. Hyperlipidemia. 7. Possible long COVID. RECOMMENDATION: This 68-year-old woman, who presented with multiple complex medical issues. We will monitor the patient closely. Continue the current medications and continue symptomatic treatment. We will consult Cardiology. Rule out myocardial infarction. The patient had negative stress test apparently recently. Symptomatic treatment for the pain. Discussed with the patient and family. Further recommendations to follow. MMODL / IJN: [id number] /
[2024-08-02] MEDS: PANTOPRAZOLE 40 MG TABLET PO SCH (05:05)
[2024-08-02 08:08] VITALS: RESP 16; TEMP 97.7
--- NOTE | 2024-08-02 08:22 | P.CRDCN ---
History of Present Illness Consult date: 08/02/24 Consult reason: chest pain History of present illness: This is Carter Christianson NP, I'm dictating on behalf of Dr. Morales's H&P and A&P The patient was interviewed and examined. HPI: Patient is a pleasant 68-year-old female with a past medical history that includes atrial fibrillation, diabetes mellitus, COPD, hyperlipidemia, skin c ancer, bronchitis, who presented to the hospital with complaints of intermittent chest pain and lightheadedness. Patient received a dobutamine stress test two evenings ago, which was stopped due to symptoms. She reports the lightheadedness and intermittent left-sided chest pain continued throughout the day yesterday, she was also experiencing some weakness. Patient does not have any history of [place]. Patient reports chronic shortness of breath due to COPD. She reports overall that she been feeling unwell since having COVID last fall. This morning patient reports that she is asymptomatic. She is denying dizziness and chest pain. Serial enzymes have not demonstrated significant elevation. EKG has no signs of ischemic disease. ROS: [No fever, chills, or rigors] [no cough, phlegm, or expectoration] [no nausea, vomiting, or diarrhea] [no hematuria, dysuria] [no musculoskelatal complaints] [no strokes or seizures] [no skin lesions] EXAMINATION: GENERAL: Well-appearing, well-nourished and in no acute distress. NECK: Supple without JVD or thyromegaly. LUNGS: Breath sounds clear to auscultation bilaterally. Respiration equal and unlabored. No wheezes, rales or rhonchi. HEART: Regular rate and rhythm without murmurs, rubs or gallops. S1 and S2 heard. EXTREMITIES: Normal range of motion, no edema. No clubbing or cyanosis. Peripheral pulses intact and strong. REVIEW OF LABS, ECG & MEDICAL DATA: LABS: White count 9.4, hemoglobin 13.9, platelets 248, sodium 137, potassium 4.9, BUN 20, creatinine 0.62, magnesium 2, troponin-0.018, 0.013, less than 0.012, BNP 45, lipase 83, TSH 2.31 EKG: Sinus mechanism IMAGING: Chest x-ray dated 08/01/2021 demonstrates no evidence for acute pulmonary disease. VITALS: Temp 97.7, pulse 74, respirations 16, blood pressure 146/77, O2 satur ation 96% on room air IMPRESSION: 1. Chest discomfort, status post dobutamine stress test 2 days ago 2. Dizziness 3. History of COPD 4. History of diabetes 5. Hypertension PLAN: Increase metoprolol to 50 mg daily. Start losartan 25 mg in the evening. No evidence of ischemia on labs or EKG. Symptoms are likely post stress test. She was tested in the office. We will evaluate for final results. Further recommendations based on patient's stress test results. Thank you for the consult and allowing us to participate in the care of this patient. Past Medical History Past Medical History: Atrial Fibrillation, Cancer, COPD, Diabetes Mellitus, Hyperlipidemia, Pneumonia Additional Past Medical History / Comment(s): L leg skin cancer with removal, bronchitis. History of Any Multi-Drug Resistant Organisms: None Reported Past Surgical History: Orthopedic Surgery, Tubal Ligation Additional Past Surgical History / Comment(s): L leg skin cancer removal, colonoscopy. Past Anesthesia/Blood Transfusion Reactions: No Reported Reaction Past Psychological History: No Psychological Hx Reported Additional Psychological History / Comment(s): Pt resides with her spouse. She is independent. Smoking Status: Former smoker Past Alcohol Use History: Occasional Additional Past Alcohol Use History / Comment(s): Pt started smoking in 1987 and is a ppd smoker. Quit smoking in 2019. She drinks one glass of wine a day. Past Drug Use History: None Reported - Past Family History Father Family Medical History: No Reported History Additional Family Medical History / Comment(s): Father lived to be 85 yrs. Mother Family Medical History: COPD Additional Family Medical History / Comment(s): Mother of COPD at the age of 84 yrs. She was a smoker. Medications and Allergies Home Medications Medication Instructions Recorded Confirmed Type Aspirin EC [Ecotrin Low Dose] 81 mg PO DAILY 06/06/19 08/01/24 History Budesonide/Formoterol Fumarate 2 puff INHALATION RT-BID 06/06/19 08/01/24 History [Symbicort 160-4.5 Mcg Inhaler] Cetirizine HCl [Zyrtec] 10 mg PO DAILY 06/06/19 08/01/24 History Metoprolol Succinate [Toprol XL] 25 mg PO DAILY 06/06/19 08/01/24 History Calcium Phos/D3/Magnesium/Zinc 1 tab PO DAILY 08/01/24 08/01/24 History [Genl[place]-Uil-Lxjv-Vitamin D3] Collagen/Biotin/Ascorbic Acid 1 cap PO DAILY 08/01/24 08/01/24 History [Collagen 1500 Plus C Capsule] Ibuprofen [Advil] 400 mg PO HS 08/01/24 08/01/24 History Multivit-Min/Iron/Folic/Lutein 1 tab PO DAILY 08/01/24 08/01/24 History [Centrum Silver Women Tablet] Potassium Gluconate 99 mg PO DAILY 08/01/24 08/01/24 History Rosuvastatin [Crestor] 20 mg PO DAILY 08/01/24 08/01/24 History Venlafaxine HCl [Effexor XR] 75 mg PO DAILY 08/01/24 08/01/24 History metFORMIN HCL [Glucophage] 500 mg PO BID 08/01/24 08/01/24 History Allergies Allergy/AdvReac Type Severity Reaction Status Date / Time No Known Allergies Allergy Verified 08/01/24 16:14 Physical Exam Vitals: Vital Signs Temp Pulse Pulse Resp BP BP BP 08/02/24 07:14 97.7 F 74 16 146/77 08/02/24 01:25 97.8 F 86 18 121/79 08/01/24 21:53 97.6 F 91 18 153/88 08/01/24 20:25 74 18 142/76 08/01/24 18:07 79 18 178/79 08/01/24 17:53 79 16 134/104 08/01/24 16:00 75 18 148/100 08/01/24 14:06 87 18 143/92 08/01/24 12:48 97.5 F L 93 18 135/79 Pulse Ox 08/02/24 07:14 96 08/02/24 01:25 95 08/01/24 21:53 95 08/01/24 20:25 95 08/01/24 18:07 95 08/01/24 17:53 98 08/01/24 16:00 96 08/01/24 14:06 97 08/01/24 12:48 93 L Intake and Output 08/01/24 08/02/24 08/02/24 22:59 06:59 14:59 Other: # Voids 1 1 Weight 79.832 kg Results 08/01/24 12:58 08/01/24 18:04 Cardiac Enzymes 08/01/24 08/01/24 08/01/24 Range/Units 12:58 12:58 18:04 AST 35 (14-36) U/L Troponin I 0.018 0.013 (0.000-0.034) ng/mL 08/01/24 Range/Units 22:45 AST (14-36) U/L Troponin I <0.012 (0.000-0.034) ng/mL Coagulation 08/01/24 Range/Units 12:58 PT 10.1 (10.0-12.5) sec APTT 20.9 L (22.0-30.0) sec CBC 08/01/24 Range/Units 12:58 WBC 9.4 (3.8-10.6) k/uL RBC 4.79 (3.80-5.40) m/uL Hgb 13.9 (11.4-16.0) gm/dL Hct 43.7 (34.0-46.0) % Plt Count 248 (150-450) k/uL Comprehensive Metabolic Panel 08/01/24 08/01/24 Range/Units 12:58 18:04 Sodium 137 (137-145) mmol/L Potassium 5.2 H 4.9 (3.5-5.1) mmol/L Chloride 102 (98-107) mmol/L Carbon Dioxide 26 (22-30) mmol/L BUN 20 H (7-17) mg/dL Creatinine 0.62 (0.52-1.04) mg/dL Glucose 115 H (74-99) mg/dL Calcium 9.7 (8.4-10.2) mg/dL AST 35 (14-36) U/L ALT 25 (4-34) U/L Alkaline Phosphatase 46 (38-126) U/L Total Protein 7.8 (6.3-8.2) g/dL Albumin 4.7 (3.5-5.0) g/dL Current Medications Generic Name Dose Route Start Last Admin Trade Name Freq PRN Reason Stop Dose Admin Acetaminophen 500 mg 08/01/24 16:47 Acetaminophen Tab 500 Mg Tab PO Q6HR PRN Fever and/ or MILD Pain Hydrocodone Bitart/Acetaminophen 1 each 08/01/24 16:47 Hydrocodone/Apap 5-325mg 1 Each Tab PO Q6HR PRN Moderate Pain (Scale 4 to 6) Alprazolam 0.25 mg 08/01/24 16:47 Alprazolam 0.25 Mg Tab PO TID PRN Anxiety Aspirin 81 mg 08/02/24 09:00 Aspirin 81 Mg PO DAILY [facility] Atorvastatin Calcium 40 mg 08/02/24 09:00 Atorvastatin 40 Mg Tab PO DAILY [facility] Budesonide/Formoterol Fumarate 2 puff 08/01/24 20:00 08/01/24 23:26 Symbicort 160-4.5 Mcg Inhaler INHALATION 2 puff RT-BID [facility] Administration Enoxaparin Sodium 40 mg 08/02/24 09:00 Enoxaparin 40 Mg/0.4 Ml Syringe SQ DAILY [facility] Hydromorphone HCl 0.5 mg 08/01/24 16:47 Hydromorphone 0.5 Mg/0.5 Ml Syringe IVP Q6HR PRN Severe Pain (Scale 7 to 10) Ibuprofen 400 mg 08/01/24 21:00 08/01/24 20:22 Ibuprofen 400 Mg Tab PO 400 mg HS [facility]AK Administration Loratadine 10 mg 08/02/24 09:00 Loratadine 10 Mg Tab PO DAILY [facility] Losartan Potassium 25 mg 08/02/24 18:00 Losartan 25 Mg Tab PO DAILY@1800 [facility] Metoprolol Succinate 50 mg 08/02/24 09:00 Metoprolol Succinate (Er) 50 Mg Tab.Er.24h PO DAILY [facility] Morphine Sulfate 2 mg 08/01/24 16:51 Morphine Sulfate 2 Mg/Ml Syringe IVP 08/31/24 16:50 Q5M PRN Chest Pain Multivitamins 1 each 08/02/24 09:00 Multivitamins, Thera 1 Each Tab PO DAILY [facility] Nitroglycerin 0.4 mg 08/01/24 16:50 Nitroglycerin Sl Tabs 0.4 Mg Tab SUBLINGUAL Q5M PRN Chest Pain Pantoprazole Sodium 40 mg 08/02/24 07:30 08/02/24 05:05 Pantoprazole 40 Mg Tablet PO 40 mg [id number] [facility] Administration Temazepam 15 mg 08/01/24 16:47 Temazepam 15 Mg Cap PO HS PRN Insomnia Venlafaxine HCl 75 mg 08/02/24 09:00 Venlafaxine Hcl Er 75 Mg Cap PO DAILY [facility] Intake and Output 03/08/02/24 08/02/24 22:59 06:59 14:59 Other: # Voids 1 1 Weight 79.832 kg 08/01/24 12:58 08/01/24 18:04
[2024-08-02] MEDS ORDERED: METOPROLOL SUCCINATE (ER) 25 MG TAB.ER.24H PO SCH (09:00)
[2024-08-02] MEDS ORDERED: NON FORMULARY DRUG (Calcium Phos/D3/Magnesium/Zinc [Calcium-Mag-Zinc-Vitamin D3] 1 EACH Ta PO SCH (09:00)
[2024-08-02] MEDS ORDERED: NON FORMULARY DRUG (Potassium Gluconate [Potassium Gluconate] 99 MG Tablet) PO SCH (09:00)
[2024-08-02] MEDS ORDERED: NON FORMULARY DRUG (Collagen/Biotin/Ascorbic Acid [Collagen 1500 Plus C Capsule] 1 EACH Ca PO SCH (09:00)
[2024-08-02] MEDS: LORATADINE 10 MG TAB PO SCH (09:19)
[2024-08-02] MEDS: MULTIVITAMINS, THERA 1 EACH TAB PO SCH (09:19)
[2024-08-02] MEDS: ASPIRIN 81 MG PO SCH (09:19)
[2024-08-02] MEDS: ATORVASTATIN 40 MG TAB PO SCH (09:19)
[2024-08-02] MEDS: ENOXAPARIN 40 MG/0.4 ML SYRINGE SQ SCH (09:19)
[2024-08-02] MEDS: METOPROLOL SUCCINATE (ER) 50 MG TAB.ER.24H PO SCH (09:19)
[2024-08-02] MEDS: VENLAFAXINE HCL ER 75 MG CAP PO SCH (09:30)
[2024-08-02 10:20] LABS: Chol/HDL Ratio 2.24 Ratio
[2024-08-02 13:10] LABS: Glucose,Whole Blood 98 mg/dL (70-110)
[2024-08-02 16:05] VITALS: BP 133/86; PULSE 76
[2024-08-02] MEDS ORDERED: LOSARTAN 25 MG TAB PO SCH (18:00)
--- NOTE | 2024-08-02 23:15 | DS ---
DISCHARGE SUMMARY FINAL DIAGNOSES: 1. Chest pain, possible unstable angina. 2. Atrial fibrillation. 3. Recent stress test apparently negative chronic obstructive pulmonary disease. 4. Multiple complex medical issues. DISCHARGE DISPOSITION: The patient will be discharged in stable condition and guarded prognosis. HISTORY OF PRESENT ILLNESS: This 68-year-old woman was admitted with multiple symptomatology after a stress test, treated symptomatically, improved significantly. The patient will be discharged home if okay with Cardiology. Follow up with Cardiology and primary physician in the outpatient setting. PHYSICAL EXAMINATION: VITAL SIGNS: Stable. CARDIOVASCULAR: S1, S2. ABDOMEN: Soft. DISCHARGE MEDICATIONS: 1. Resume the home medications. 2. Cozaar 25 mg p.o. daily. 3. Protonix 40 mg a.c. breakfast. 4. Toprol-XL increased dose 50 mg p.o. daily. Follow up with Dr. Delgado. Follow up with Cardiology as recommended. Once again, the patient is stable, but overall prognosis guarded. The patient will be discharged after clearance from Cardiology. MMODL / MARYN: [id number] /
== END 2024-08-02 15:50 | disposition home or self-care (01) ==
LOC: EC 12:46 → 6NMEDSUR 16:53
PROVIDERS: ADMIT Internal Medicine; ATTEND Internal Medicine
DX: R07.89 Other chest pain (principal); R42 Dizziness and giddiness; R53.1 Weakness; E11.9 Type 2 diabetes mellitus without complications; E78.5 Hyperlipidemia, unspecified; I10 Essential (primary) hypertension; I48.91 Unspecified atrial fibrillation; J44.9 Chronic obstructive pulmonary disease, unspecified; Z79.51 Long term (current) use of inhaled steroids; Z79.82 Long term (current) use of aspirin; Z79.84 Long term (current) use of oral hypoglycemic drugs; Z79.899 Other long term (current) drug therapy; Z85.828 Personal history of other malignant neoplasm of skin; Z86.16 Personal history of COVID-19; Z87.891 Personal history of nicotine dependence; Z79.1 Long term (current) use of non-steroidal anti-inflammatories (NSAID)
CPT/HCPCS: 96372; 96361; 96365; 96366; 99285; 36415; 94640 ×2; 93005; 83880; 80061; 80053; 84443; 83690; 83735; 84132; 84484; 85025; 85610; 85730; 71046; G0378 ×2; J1650; J3475